=== PATIENT | female | born 1950 ===

== ENCOUNTER 2018-08-26 18:22 | Emergency (ER) | payer OTHER, MEDICARE ==
[2018-08-26 18:25] VITALS: RESP 18; TEMP 97.7; O2SAT 98
[2018-08-26] MEDS ORDERED: Lidocaine 1% Inj (20ml) IJ STA (19:47)
[2018-08-26] MEDS ORDERED: Tetanus/Diphtheria Toxoids 0.5 ml Syringe IM ONE ×2 (19:49→19:59)
[2018-08-26] MEDS ORDERED: Povidone Iodine Topical 10% Sol ONE (19:53)
[2018-08-26] MEDS ORDERED: Lidocaine Hydrochloride 1% 10 ML ONE (19:53)
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
--- NOTE | 2018-08-26 21:29 | ED PDOC ---
- ECG O2 Sat by Pulse Oximetry: 98 - Progress ED Course And Treament: Seen by podiatry in ED. CT of lower extremity requested. Laceration repair by podiatry resident. ct NOTES NONDISPLACED FX; POSSIBLE LISFRANC. PATIENT PLACED IN POSTERIOR SPLINT AND GIVEN CRUTCH INSTRUCTIONS. PATIENT TO F/U WITH PODIATRY CLINIC ON MONDAY Medical Decision Making Medical Decision Makin CT Foot COMMENTS: There is a minimally displaced chip fracture of the lower and fibula. Mildly displaced small chip fractures are seen involving the anterior aspect of the cuboid and bases of the first and second metatarsals Diffuse subcutaneous edema changes are seen in the lateral aspect of the ankle and lateral and dorsal aspect of the foot. There is evidence of a well-defined lucent lesion measuring 1.8 x 1.6 cm in the calcaneum, showing fat attenuation, likely to suggest a lipoma. No soft tissue masses or fluid collections are present. There is no evidence of arthritis. Joint spaces are preserved. IMPRESSION: 1.A minimally displaced chip fracture of the lower and fibula. 2.Mildly displaced small chip fractures involving the anterior aspect of the cuboid and bases of the first and second metatarsals 3.Diffuse subcutaneous edema changes in the lateral aspect of the ankle and lateral and dorsal aspect of the foot. 4.A well-defined lipoma lesion in the calcaneum. Disposition - Clinical Impression Clinical Impression: Foot trauma, Foot fracture, Laceration of foot - POA Present On Arrival: None - Disposition Referrals: Podiatry Clinic [Outside] Disposition: Routine/Home Disposition Time: 23:37 Condition: STABLE Additional Instructions: SARAH DEXTER ROSY PARA HARDIK PARA [facility] Prescriptions: Cephalexin [Keflex] 500 mg PO QID #28 capsule Ibuprofen [Motrin] 600 mg PO Q8 PRN #21 tab PRN Reason: Pain, Moderate (4-7) oxyCODONE/Acetaminophen [Percocet 5/325 mg Tab] 1 ea PO Q6 PRN #10 tab PRN Reason: Pain, Severe (8-10) Instructions: Foot Fracture (DC), Laceration Repair With Stitches (DC) Forms: [facility] ED School/Work Excuse Print Language: KHMER
--- NOTE | 2018-08-26 21:53 | CP.PCM.CON ---
History of Present Illness - History of Present Illness History of Present Illness: Podiatry consult note for attending Dr. Weiner, 75 years old female with PMHx of Anemia, Anxiety, Arthritis, Back Problems, Cardiac Arrhythmia, COPD, Depression, Diverticulitis, PE and DVT (Right leg S/P IVC filter), Fractures (left hip surgery September/2017), HTN, HLD, Kidney Stones, Osteoporosis, Pneumonia, RA, Chronic Pain, Cataract was Seen and evaluated in the ED for pain, swelling and ecchymosis in her left foot, worsening over the last 3 days. Patient was seen in the ED on 08/22/18 and noted to have 3rd and 4th phalangeal fractures. Patient was discharged home with Acosta compression, wear bear as tolerated. Patient and spouse state that yesterday patient started having fever and chills. Patient states that the swelling and ecchymosis became worse despite applying ice to the left foot. Patient reports the pain comes and goes. Patient states that she is on Eliquis anticoagulant. Patient states that she feels some tingling and numbness in her left foot and her left leg. Patient states that she also has chronic back pain. She denies any other pedal complaint at this time. She denies any recent fever/nausea/vomiting/cough/chills/shortness of breathing or loss of consciousness. PMH: Anemia, Anxiety, Arthritis, Back Problems, Cardia Arrhythmia, COPD, Depression, Diverticulitis, PE and DVT (Right leg S/P IVC filter), Fractures (left hip surgery september/2017), HTN, HLD, Kidney Stones, Osteoporosis, Pneumonia, RA, Chronic Pain, Cataract. PSH:Left THR, IVC, back stimulator. Allergies: NKDA. Social Hx: Former smoker; Occasional Alcohol; no illegal drug use; use medical marijuana oil. Review of Systems - Review of Systems All systems: reviewed and no additional remarkable complaints except Review of Systems: As per HPI Past Patient History - Past Social History Smoking Status: Never Smoked - CARDIAC Hx Hypertension: Yes - PSYCHIATRIC Hx Substance Use: No - ANESTHESIA Hx Anesthesia: No Meds Allergies/Adverse Reactions: Allergies Allergy/AdvReac Type Severity Reaction Status Date / Time No Known Allergies Allergy Verified 08/26/18 19:47 Physical Exam - Constitutional Appears: Well, Non-toxic, No Acute Distress - Head Exam Head Exam: ATRAUMATIC, NORMOCEPHALIC - Extremities Exam Additional comments: Left lower extremity focused exam: VASC: DP pulse palpable 2/4, PT pulse palpable 1/4; cap refill <3 seconds to all digits; temp gradient warm to cool from proximal to distal, Moderate non-pitting edema noted to the left forefoot. Ecchymosis noted to the left forefoot at 2-5 toes up to the met shafts, with possible underlying hematoma. Superficial varicosities noted to the lower leg and ankle NEURO: Gross and protective sensations are intact. DERM: moderate non-pitting edema noted to the left forefoot. Ecchymosis noted to the left forefoot at 2-5 toes up to the met. shafts with surrounding cellulitis, No open lesions MSK: Pain on palpating the left 3rd and 4th toes. Pain with ROM of the left 3rd and 4th toes. Muscle power 4/5 to all groups. No pain produced with left hallux dorsiflexion. - Neurological Exam Neurological exam: Alert, Oriented x3 - Psychiatric Exam Psychiatric exam: Normal Affect, Normal Mood Results - Vital Signs Recent Vital Signs: Last Vital Signs Temp 97.7 F 08/26/18 18:25 Pulse 86 08/26/18 18:25 Resp 18 08/26/18 18:25 BP 178/76 H 08/26/18 18:25 Pulse Ox 98 08/26/18 21:29 Assessment & Plan - Assessment and Plan (Free Text) Assessment: 75 years old female with PMH of Anemia, Anxiety, Arthritis, Back Problems, Cardiac Arrhythmia, COPD, Depression, Diverticulitis, PE and DVT (Right leg S/P IVC filter), Fractures (left hip surgery September/2017), HTN, HLD, Kidney Stones, Osteoporosis, Pneumonia, RA, Chronic Pain, Cataract seen and evaluated in the ED for left 3rd and 4th toes fracture, with surrounding erythema, admitted for fever and chills. Plan: Patient seen and evaluated at the bedside in the ED. Plan discussed with Dr. Weiner Charts and vitals reviewed: febrile, absent leukocytosis X-ray left foot (08/22): Acute non displaced fracture noted in the midshaft of the left 3rd proximal phalanx and another acute non displaced fracture noted in the distal aspect of the proximal phalanx of the 4th toe With sever soft tissue swelling of the forefoot X-rays (08/26): moderate soft tissue swelling, no change in fractures No dressing applied at this time Patient instructed to apply ice, Rest and elevate left lower extremity. Patient instructed to no weight bear at this time Podiatry will continue to follow patient while in house - Date & Time Date: 08/26/18 Time: 22:01
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
[2018-08-26] MEDS ORDERED: Oxycodone/Acetaminophen 5/325 mg Tab PO STA (23:55)
[2018-08-27 00:02] VITALS: BP 142/76; PULSE 71
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
== END 2018-08-27 00:14 | disposition home or self-care (01) ==
LOC: H.ER 18:22 → MERGE 18:22 → H.ER 08-27 00:14
DX: S92.322A Displaced fracture of second metatarsal bone, left foot, initial encounter for closed fracture (principal); W23.0XXA Caught, crushed, jammed, or pinched between moving objects, initial encounter; Z87.891 Personal history of nicotine dependence; Z87.442 Personal history of urinary calculi; Z86.718 Personal history of other venous thrombosis and embolism; Z79.01 Long term (current) use of anticoagulants; S91.319A Laceration without foreign body, unspecified foot, initial encounter; M19.90 Unspecified osteoarthritis, unspecified site; I10 Essential (primary) hypertension; Z23 Encounter for immunization
CPT/HCPCS: 12001; 73630; 73700; 90471; 90714; 96372; 99285; J1885

== ENCOUNTER 2018-08-28 11:06 | Inpatient (IN) | payer MEDICARE, OTHER ==
--- NOTE | 2018-08-28 11:54 | ED PDOC ---
Lower Extremity Pain/Injury Time Seen by Provider: 08/28/18 11:19 Chief Complaint (Provider): Right foot pain History Per: Patient History/Exam Limitations: no limitations Onset/Duration Of Symptoms: Days Current Symptoms Are (Timing): Still Present Additional Complaint(s): 67 year old female presents to the ED for an evaluation of her right foot. Patient is status post wound repair on her right lower extremity by a hairmasters manager. Currently, patient has pain. Otherwise, she denies fever or any discharge. Past Medical History Reviewed: Historical Data, Nursing Documentation, Vital Signs Vital Signs: Last Vital Signs Temp 97.4 F L 08/28/18 11:12 Pulse 60 08/28/18 11:12 Resp 18 08/28/18 11:12 BP 114/65 08/28/18 11:12 Pulse Ox 100 08/28/18 11:12 - Medical History PMH: HTN, Hypercholesterolemia - Family History Family History: States: Unknown Family Hx - Immunization History Hx Tetanus Toxoid Vaccination: No Hx Influenza Vaccination: No Hx Pneumococcal Vaccination: No - Home Medications Home Medications: Ambulatory Orders Medication Instructions Recorded No Known Home Med 11/10/13 Cephalexin [Keflex] 500 mg PO QID #28 capsule 08/26/18 Ibuprofen [Motrin] 600 mg PO Q8 PRN #21 tab 08/26/18 oxyCODONE/Acetaminophen [Percocet 1 ea PO Q6 PRN #10 tab 08/26/18 5/325 mg Tab] - Allergies Allergies/Adverse Reactions: Allergies Allergy/AdvReac Type Severity Reaction Status Date / Time No Known Allergies Allergy Verified 08/27/18 08:23 Review of Systems ROS Statement: Except As Marked, All Systems Reviewed And Found Negative Constitutional: Negative for: Fever Musculoskeletal: Positive for: Foot Pain (right ) Skin: Negative for: Other (discharge from wound ) Physical Exam - Reviewed Nursing Documentation Reviewed: Yes Vital Signs Reviewed: Yes - Physical Exam Appears: Positive for: Well, Non-toxic, No Acute Distress Head Exam: Positive for: ATRAUMATIC, NORMAL INSPECTION, NORMOCEPHALIC Skin: Positive for: Normal Color, Warm, Dry Extremity: Positive for: Swelling (mild on the dorsum of right foot), Other (suture intact, no drainage ) Neurological/Psych: Positive for: Awake, Alert, Normal Tone, Oriented (x3) - ECG O2 Sat by Pulse Oximetry: 100 (RA) Pulse Ox Interpretation: Normal Medical Decision Making Medical Decision Making: ----- Scribe Attestation: Documented by Mk Gallardo, acting as a scribe Ad Cesar MD Provider Scribe Attestation: All medical record entries made by the Scribe were at my direction and personally dictated by me. I have reviewed the chart and agree that the record accurately reflects my personal performance of the history, physical exam, medical decision making, and the department course for this patient. I have also personally directed, reviewed, and agree with the discharge instructions and disposition. Disposition - Clinical Impression Clinical Impression: Foot fracture - Patient ED Disposition Is Patient to be Admitted: Yes - Disposition Disposition Time: 14:14 Condition: FAIR - Pt Status Changed To: Hospital Disposition Of: Inpatient - Admit Certification Admit to Inpatient:: After my assessment, the patient will require hospitalization for at least two midnights. This is because of the severity of symptoms shown, intensity of services needed, and/or the medical risk in this patient being treated as an outpatient. - POA Present On Arrival: None
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
--- NOTE | 2018-08-28 14:28 | RAD ---
HISTORY: HTN COMPARISON: None available TECHNIQUE: Chest PA and lateral FINDINGS: LUNGS: No focal consolidation. Please note that chest x-ray has limited sensitivity for the detection of pulmonary masses. PLEURA: Pleural thickening versus tiny effusion at the right costophrenic angle.. No definite pneumothorax . CARDIOVASCULAR: Heart size appears top normal. No atherosclerotic calcification present. OSSEOUS STRUCTURES: Osseous demineralization. Degenerative changes. VISUALIZED UPPER ABDOMEN: Unremarkable. OTHER FINDINGS: None. IMPRESSION: Pleural thickening versus tiny effusion at the right costophrenic angle.
[2018-08-28 15:21] LABS: INR 1.1; PROTHROMBIN TIME 12.7 Seconds (9.8-13.1)
[2018-08-28 15:35] LABS: ALB/GLOB RATIO 1.3 (1.0-2.1); ALBUMIN 4.4 g/dL (3.5-5.0); ALT/SGPT 32 U/L (9-52); AST/SGOT 36 U/L (14-36); BLOOD UREA NITROGEN 16 mg/dl (7-17); CALCIUM 10.1 mg/dL (8.4-10.2); GFR NON-AFRICAN AMERICAN > 60
[2018-08-28 15:38] LABS: BASO % 0.2 % (0.0-2.0); EOS % 0.5 % (0.0-4.0); HEMOGLOBIN 11.8 g/dL (12.0-16.0); LYMPH # 1.2 K/uL (1.0-4.3); LYMPH % 13.6 % (20.0-40.0); MEAN CELL VOLUME 87.8 fl (81.0-99.0); MEAN CORPUSCULAR HEMOGLOBIN 28.9 pg (27.0-31.0); MEAN PLATELET VOLUME 9.8 fl (7.2-11.7); MONO # 0.4 K/uL (0.0-0.8); MONO % 4.5 % (0.0-10.0); NEUT # 7.2 K/uL (1.8-7.0); NEUT % 81.2 % (50.0-75.0); RBC 4.07 Mil/uL (3.80-5.20); WHITE BLOOD COUNT 8.9 K/uL (4.8-10.8)
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
[2018-08-28] MEDS: Oxycodone/Acetaminophen 5/325 mg Tab PO PRN (22:29)
[2018-08-28] MEDS: Piperacillin/Tazobact 3.375 GM in Sodium Chloride 0.9% 100 ML IVPB SCH (22:38)
[2018-08-29] MEDS: Piperacillin/Tazobact 3.375 GM in Sodium Chloride 0.9% 100 ML IVPB SCH ×4 (06:20→21:26)
[2018-08-29 07:05] LABS: HEMOGLOBIN 11.9 g/dL (12.0-16.0); MEAN CORPUSCULAR HEMOGLOBIN 29.4 pg (27.0-31.0); MEAN CORPUSCULAR HGB CONC 33.4 g/dL (33.0-37.0); RBC 4.06 Mil/uL (3.80-5.20); WHITE BLOOD COUNT 7.8 K/uL (4.8-10.8)
[2018-08-29 07:28] LABS: ALB/GLOB RATIO 1.2 (1.0-2.1); ALBUMIN 4.3 g/dL (3.5-5.0); ALT/SGPT 24 U/L (9-52); AST/SGOT 33 U/L (14-36); BLOOD UREA NITROGEN 18 mg/dl (7-17); CALCIUM 9.8 mg/dL (8.4-10.2); GFR NON-AFRICAN AMERICAN 55; HDL CHOLESTEROL 67 MG/DL (30-70)
[2018-08-29 07:30] LABS: LDL CHOLESTEROL 91 mg/dL (0-129)
--- NOTE | 2018-08-29 09:03 | CARD ---
APPROVED REPORT Date of service: 08/28/2018 EKG Measurement Heart [id number] <Conclusion> Sinus bradycardia ST elevation, probably due to early repolarization Borderline ECG
[2018-08-29 10:35] LABS: SQUAMOUS EPITHIAL 3 /hpf (0-5); URINE BILIRUBIN NEGATIVE (NEGATIVE); URINE BLOOD NEGATIVE (NEGATIVE); URINE CLARITY CLEAR (Clear); URINE COLOR YELLOW (YELLOW); URINE GLUCOSE (UA) NEG (NEGATIVE); URINE LEUKOCYTE ESTERASE NEG Leu/uL (Negative); URINE PROTEIN NEGATIVE (NEGATIVE); URINE UROBILINOGEN 0.2-1.0 mg/dL (0.2-1.0)
[2018-08-29 13:48] VITALS: BMI 25.6
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
--- NOTE | 2018-08-29 17:46 | CARD ---
APPROVED REPORT Date of service: 08/29/2018 EXAM: Two-dimensional and M-mode echocardiogram with Doppler and color Doppler. Other Information Quality : AverageRhythm : NSR INDICATION Hypertension/HCVD Pre-Op 2D DIMENSIONS IVSd1.07 (0.7-1.1cm)LVDd4.14 (3.9-5.9cm) LVOT Diameter2.00 (1.8-2.4cm)PWd0.90 (0.7-1.1cm) IVSs1.03 (0.8-1.2cm)LVDs2.81 (2.5-4.0cm) FS (%) 32.2 %PWs1.20 (0.8-1.2cm) M-Mode DIMENSIONS Left Atrium (MM)3.86 (2.5-4.0cm)IVSd1.03 (0.7-1.1cm) Aortic Root2.52 (2.2-3.7cm)LVDd5.02 (4.0-5.6cm) Aortic Cusp Exc.1.83 (1.5-2.0cm)PWd0.75 (0.7-1.1cm) IVSs1.54 cmFS (%) 54 % LVDs2.32 (2.0-3.8cm)PWs1.36 cm Aortic Valve AoV Peak Dvcgiisy740.1cm/sAoV VTI29.7cmAO Peak GR.12mmHg LVOT Peak Bfcwzdop825.4cm/sLVOT VTI21.42cmAO Mean GR.6mmHg JONATHAN (VMAX)1.18rk0DSQ (VTI)1.26vj0UC P 1/2 Ffic286la Mitral Valve MV E Xjnstydn75.1cm/sMV DECEL [id number] A Qlropwwy27.9cm/s MV VLU38sbP/A ratio0.8MVA (PHT)3.39cm2 TDI Lateral E' Peak V11.24cm/sMedial E' Peak V5.62cm/sE/Lateral E'6.4 E/Medial E'12.8 LEFT VENTRICLE The left ventricle is normal size. There is normal left ventricular wall thickness. The left ventricular systolic function is normal. The estimated ejection fraction is 55-60 % No regional wall motion abnormalities noted.. Transmitral Doppler flow pattern is Grade I-abnormal relaxation pattern. No left ventricle thrombus noted on this study. There is no ventricular septal defect visualized. There is no left ventricular aneurysm. There is no mass noted in the left ventricle. RIGHT VENTRICLE The right ventricle is normal size. There is normal right ventricular wall thickness. The right ventricular systolic function is normal. ATRIA The left atrium size is normal. The right atrium size is normal. The interatrial septum is intact with no evidence for an atrial septal defect. AORTIC VALVE The aortic valve is normal in structure. Mild aortic regurgitation is present. There is no aortic valvular stenosis. There is no aortic valvular vegetation. MITRAL VALVE The mitral valve is normal in structure. There is no evidence of mitral valve prolapse. There is no mitral valve stenosis. There is no mitral valve regurgitation noted. TRICUSPID VALVE The tricuspid valve is normal in structure. There is trace tricuspid valve regurgitation noted. RVSP is calculated at 20 mm Hg. There is no tricuspid valve prolapse or vegetation. There is no tricuspid valve stenosis. PULMONIC VALVE The pulmonary valve is normal in structure. There is no pulmonic valvular regurgitation. There is no pulmonic valvular stenosis. GREAT VESSELS The aortic root is normal in size. The ascending aorta is normal in size. The pulmonary artery is normal. The IVC is normal in size and collapses >50% with inspiration. PERICARDIAL EFFUSION There is no pericardial effusion. There is no pleural effusion. <Conclusion> The estimated ejection fraction is 55-60 % Transmitral Doppler flow pattern is Grade I-abnormal relaxation pattern. The left atrium size is normal. Mild aortic regurgitation is present. There is trace tricuspid valve regurgitation noted. RVSP is calculated at 20 mm Hg. The IVC is normal in size and collapses >50% with inspiration.
[2018-08-29] MEDS: Enoxaparin 40 mg Syringe SC SCH (18:09)
[2018-08-29] MEDS: Oxycodone/Acetaminophen 5/325 mg Tab PO PRN (18:43)
--- NOTE | 2018-08-29 18:45 | MRI ---
MRI right foot History: Fracture deformity. Trauma. Comparison: CT scan dated 08/26/2018 Technique: Multi-echo multiplanar sequences were performed through the right forefoot without the use of intravenous contrast. Findings: Limited study given extensive motion artifact. Prominent heterogeneous collection measuring 4.6 x 1.6 x 0.9 centimeters seen within the volar soft tissues at the level of the 2nd and 3rd metatarsal bones demonstrating decreased T1 and T2 signal. On the recent CT scan, this was thought to possibly represent hemorrhage/hemorrhagic collection. Given the blooming artifact, a gas forming component cannot be excluded. Given the recent trauma this may represent a puncture wound with hemorrhagic collection. Additional etiologies not excluded. Necrotizing fasciitis has a similar imaging appearance. Clinical correlation. Reticulation and edema within the circumferential subcutaneous soft tissues best suggestive for prominent diffuse soft tissue swelling most prominent within the dorsal aspect of the foot. Again identified is cortical irregularity concerning for a fracture deformity at the medial volar base of the 2nd metatarsal bone with associated reactive edema extending into the 2nd metatarsal shaft. There is adjacent fraying and increased signal seen within the intraosseous component of the Lisfranc ligament as demonstrated on series 4 images 10 through 12 as well as series 6, images 24 through 27 concerning for prominent partial tearing and or high grade sprain of the Lisfranc ligament. The fracture site/bone marrow edema appears to be at/near the insertion of the Lisfranc ligament. Clinical correlation. Also again identified is reactive bone marrow edema with some cortical irregularity at the lateral base of the 2nd metatarsal bone suggestive for fracture deformity. Again identified is a fracture deformity with reactive bone marrow edema seen at the lateral base of the 1st metatarsal bone. Moderate hallux valgus deformity. Persistent signal abnormality with decreased T1 and T2 signal seen within the 1st medullary shaft suggestive for possible bone island versus osteonecrosis/AVN versus versus additional etiology. Clinical correlation. Prominent patchy reactive bone marrow edema seen within the 5th metatarsal bone with heterogeneous T1 signal. This may represent prominent bone bruising versus subchondral osseous injury/subchondral fracturing. In addition, at the lateral head of the 5th metatarsal bone there is some questionable curvilinear decreased T1 signal as seen on series 3, image 19 which may represent a small nondisplaced fracture deformity. Clinical correlation. Nonspecific reactive bone marrow edema seen within the 3rd and 4th metatarsal shafts which may represent the sequelae of posttraumatic change and or bone bruising and or additional etiology. Clinical correlation. Failure of fat suppression at the level of the phalanges of the 2nd through 5th digits on the sagittal and axial images, limit evaluation at those levels. Again identified is a fracture deformity seen at the distal pole of the cuboid bone near its articulation with the 4th metatarsal bone with decreased T1 signal and increased STIR signal. Prominent focal signal abnormality seen at the distal pole of the calcaneus with curvilinear decreased T1 signal and increased STIR signal measuring 1.2 x 1.0 centimeters. This is of uncertain clinical etiology. This may represent a fracture deformity versus prominent bone bruising versus underlying osseous lesion versus stress injury versus additional etiology. Clinical correlation. This approximates the articulation of the calcaneocuboid joint space. Again identified is a curvilinear fracture deformity of the distal fibula. Partially imaged ankle demonstrates some questionable posterior subluxation of the fibula in relationship to the tibia which may represent a syndesmotic injury. Correlation with plain ankle x-rays and or ankle MRI may be helpful for further evaluation if clinically indicated. Impression: Limited study given extensive motion artifact. 1. Prominent heterogeneous collection measuring 4.6 x 1.6 x 0.9 centimeters seen within the volar soft tissues at the level of the 2nd and 3rd metatarsal bones demonstrating decreased T1 and T2 signal. On the recent CT scan, this was thought to possibly represent hemorrhage/hemorrhagic collection. Given the blooming artifact, a gas forming component cannot be excluded. Given the recent trauma this may represent a puncture wound with hemorrhagic collection. Additional etiologies not excluded. Necrotizing fasciitis has a similar imaging appearance. Clinical correlation. 2. Again identified is cortical irregularity concerning for a fracture deformity at the medial volar base of the 2nd metatarsal bone with associated reactive edema extending into the 2nd metatarsal shaft. There is adjacent fraying and increased signal seen within the intraosseous component of the Lisfranc ligament as demonstrated on series 4 images 10 through 12 as well as series 6, images 24 through 27 concerning for prominent partial tearing and or high grade sprain of the Lisfranc ligament. The fracture site/bone marrow edema appears to be at/near the insertion of the Lisfranc ligament. Clinical correlation. 3. Also again identified is reactive bone marrow edema with some cortical irregularity at the lateral base of the 2nd metatarsal bone suggestive for fracture deformity. 4. Again identified is a fracture deformity with reactive bone marrow edema seen at the lateral base of the 1st metatarsal bone. 5. Moderate hallux valgus deformity. Persistent signal abnormality with decreased T1 and T2 signal seen within the 1st medullary shaft suggestive for possible bone island versus osteonecrosis/AVN versus versus additional etiology. Clinical correlation. 6. Prominent patchy reactive bone marrow edema seen within the 5th metatarsal bone with heterogeneous T1 signal. This may represent prominent bone bruising versus subchondral osseous injury/subchondral fracturing. In addition, at the lateral head of the 5th metatarsal bone there is some questionable curvilinear decreased T1 signal as seen on series 3, image 19 which may represent a small nondisplaced fracture deformity. Clinical correlation. 7. Nonspecific reactive bone marrow edema seen within the 3rd and 4th metatarsal shafts which may represent the sequelae of posttraumatic change and or bone bruising and or additional etiology. Clinical correlation. 8. Failure of fat suppression at the level of the phalanges of the 2nd through 5th digits on the sagittal and axial images, limit evaluation at those levels. 9. Again identified is a fracture deformity seen at the distal pole of the cuboid bone near its articulation with the 4th metatarsal bone with decreased T1 signal and increased STIR signal. 10. Prominent focal signal abnormality seen at the distal pole of the calcaneus with curvilinear decreased T1 signal and increased STIR signal measuring 1.2 x 1.0 centimeters. This is of uncertain clinical etiology. This may represent a fracture deformity versus prominent bone bruising versus underlying osseous lesion versus stress injury versus additional etiology. Clinical correlation. This approximates the articulation of the calcaneocuboid joint space. 11. Again identified is a curvilinear fracture deformity of the distal fibula. 12. Partially imaged ankle demonstrates some questionable posterior subluxation of the fibula in relationship to the tibia which may represent a syndesmotic injury. Correlation with plain ankle x-rays and or ankle MRI may be helpful for further evaluation if clinically indicated.
--- NOTE | 2018-08-29 21:48 | CP.PCM.PN ---
Subjective - Date & Time of Evaluation Date of Evaluation: 08/29/18 Time of Evaluation: 10:00 - Subjective Subjective: F/U R foot pain, s/p Fx. no pain R foot Objective - Vital Signs/Intake and Output Vital Signs (last 24 hours): Temp Pulse Resp BP Pulse Ox 98 F 65 18 103/62 99 08/29/18 17:08 08/29/18 17:08 08/29/18 17:08 08/29/18 17:08 08/29/18 17:08 - Medications Medications: Current Medications Calcium Carbonate (Oscal) 500 mg PO BID [facility] Last Admin: 08/29/18 18:10 Dose: 500 mg Enoxaparin Sodium (Lovenox) 40 mg SC DAILY [facility]; Protocol Last Admin: 08/29/18 18:09 Dose: 40 mg Ergocalciferol (Drisdol 50,000 Intl Units Cap) 1 cap PO SAT [facility] Gabapentin (Neurontin) 200 mg PO HS [facility] Last Admin: 08/29/18 21:30 Dose: 200 mg Hydrochlorothiazide (Microzide) 12.5 mg PO DAILY [facility] Last Admin: 08/29/18 10:26 Dose: 12.5 mg Piperacillin Sod/Tazobactam (Sod 3.375 gm/ Sodium Chloride) 100 mls @ 100 mls/hr IVPB Q6 [facility]; Protocol Last Admin: 08/29/18 21:26 Dose: 100 mls/hr Vancomycin HCl 1 gm/ Sodium (Chloride) 250 mls @ 166.667 mls/hr IVPB Q12@0000,1200 [facility]; Protocol Last Admin: 08/29/18 13:17 Dose: 166.667 mls/hr Losartan Potassium (Cozaar) 100 mg PO DAILY [facility] Last Admin: 08/29/18 10:25 Dose: 100 mg Oxycodone/Acetaminophen (Percocet 5/325 Mg Tab) 1 tab PO Q6 PRN PRN Reason: Pain, severe (8-10) Stop: 08/31/18 18:08 Last Admin: 08/29/18 18:43 Dose: 1 tab - Labs Labs: 08/29/18 05:55 08/29/18 05:55 PT 12.7 Seconds (9.8-13.1) 08/28/18 15:13 INR 1.1 08/28/18 15:13 APTT 33.7 Seconds (25.6-37.1) 08/29/18 05:55 - Constitutional Appears: No Acute Distress - Head Exam Head Exam: NORMAL INSPECTION - Eye Exam Eye Exam: PERRL - ENT Exam ENT Exam: Normal Exam - Neck Exam Neck Exam: Normal Inspection - Respiratory Exam Respiratory Exam: NORMAL BREATHING PATTERN - GI/Abdominal Exam GI & Abdominal Exam: Soft, Normal Bowel Sounds - Extremities Exam Extremities Exam: Tenderness (R foot) Additional comments: moves toes R foot, R foot- splint, KULDEEP wrapp - Back Exam Back Exam: NORMAL INSPECTION - Neurological Exam Neurological Exam: Alert, Awake, Oriented x3 - Psychiatric Exam Psychiatric exam: Normal Affect, Normal Mood - Skin Skin Exam: Warm Assessment and Plan (1) Right foot pain Status: Acute (2) Lisfranc fracture Status: Acute (3) Foot trauma Status: Acute (4) HTN (hypertension) Status: Chronic - Assessment and Plan (Free Text) Plan: ECHO LVEF 55-60%, Cardiology for clearance, continue Zosyn, Vanco, Percocet and rest of Tx
[2018-08-30] MEDS: Piperacillin/Tazobact 3.375 GM in Sodium Chloride 0.9% 100 ML IVPB SCH ×5 (04:25→21:06)
--- NOTE | 2018-08-30 07:30 | CP.PCM.PN ---
Subjective - Date & Time of Evaluation Date of Evaluation: 08/30/18 Time of Evaluation: 07:27 - Subjective Subjective: Caridad Pace, PGY-1, Cardiology Consult Note for Dr. Rojas Patient seen and evaluated at bedside. Patient had no acute overnight events. Patient reports mild right foot pain but denies any other symptoms at this time. Objective - Vital Signs/Intake and Output Vital Signs (last 24 hours): Temp Pulse Resp BP Pulse Ox 97.6 F 63 18 96/52 L 97 08/29/18 23:59 08/29/18 23:59 08/29/18 23:59 08/29/18 23:59 08/29/18 23:59 - Medications Medications: Current Medications Calcium Carbonate (Oscal) 500 mg PO BID [facility] Last Admin: 08/29/18 18:10 Dose: 500 mg Enoxaparin Sodium (Lovenox) 40 mg SC DAILY [facility]; Protocol Last Admin: 08/29/18 18:09 Dose: 40 mg Ergocalciferol (Drisdol 50,000 Intl Units Cap) 1 cap PO SAT [facility] Gabapentin (Neurontin) 200 mg PO HS [facility] Last Admin: 08/29/18 21:30 Dose: 200 mg Hydrochlorothiazide (Microzide) 12.5 mg PO DAILY [facility] Last Admin: 08/29/18 10:26 Dose: 12.5 mg Piperacillin Sod/Tazobactam (Sod 3.375 gm/ Sodium Chloride) 100 mls @ 100 mls/hr IVPB Q6 [facility]; Protocol Last Admin: 08/30/18 04:25 Dose: 100 mls/hr Vancomycin HCl 1 gm/ Sodium (Chloride) 250 mls @ 166.667 mls/hr IVPB Q12@0000,1200 [facility]; Protocol Last Admin: 08/30/18 00:03 Dose: 166.667 mls/hr Losartan Potassium (Cozaar) 100 mg PO DAILY [facility] Last Admin: 08/29/18 10:25 Dose: 100 mg Oxycodone/Acetaminophen (Percocet 5/325 Mg Tab) 1 tab PO Q6 PRN PRN Reason: Pain, severe (8-10) Stop: 08/31/18 18:08 Last Admin: 08/29/18 18:43 Dose: 1 tab - Labs Labs: 08/29/18 05:55 08/29/18 05:55 PT 12.7 Seconds (9.8-13.1) 08/28/18 15:13 INR 1.1 08/28/18 15:13 APTT 33.7 Seconds (25.6-37.1) 08/29/18 05:55 - Constitutional Appears: Well, Non-toxic, No Acute Distress - Head Exam Head Exam: ATRAUMATIC, NORMAL INSPECTION, NORMOCEPHALIC - Eye Exam Eye Exam: EOMI, PERRL - ENT Exam ENT Exam: Mucous Membranes Moist - Neck Exam Neck Exam: Full ROM - Respiratory Exam Respiratory Exam: Clear to Ausculation Bilateral, NORMAL BREATHING PATTERN - Cardiovascular Exam Cardiovascular Exam: REGULAR RHYTHM, RRR, +S1, +S2 - GI/Abdominal Exam GI & Abdominal Exam: Soft, Normal Bowel Sounds. absent: Tenderness - Extremities Exam Extremities Exam: Normal Capillary Refill. absent: Pedal Edema Additional comments: 1st and 2nd metatarsal fracture of the right foot - Neurological Exam Neurological Exam: Alert, Awake, CN II-XII Intact, Oriented x3 - Psychiatric Exam Psychiatric exam: Normal Affect, Normal Mood - Skin Skin Exam: Dry, Intact Assessment and Plan - Assessment and Plan (Free Text) Assessment: Lisfranc Fracture Hypertension Hyperlipidemia Prior DVT and PE Anemia Plan: Lisfranc Fracture Hypertension Hyperlipidemia Prior DVT and PE Anemia Lower Extremity CT showed LIsfranc fracture with cortical irregularities and comminute fractures at 2nd metatarsal at insertion of lisfranc ligament. Also showed comminution fracture at base of 1st metatarsal. Foot MRI 08/29: heterogenous collection measuring 4.6x1.6x0.9 cm seen in volar tissues at the level of the 2nd and 3rd metatarsal bones. On recent CT, this was thought to possible represent hemorrhage/hemorrhagic collection. Cortical irregularity concerning for fracture deformity of 2nd metatarsal. There is adjacent fraying and increased signal seen within the intraosseous component of the Lisfranc ligament as demonstrated on series 4 images 10 through 12 as well as series 6, images 24 through 27 concerning for prominent partial tearing and or high grade sprain of the Lisfranc ligament. The fracture site/bone marrow edema appears to be at/near the insertion of the Lisfranc ligament. Also again identified is reactive bone marrow edema with some cortical irregularity at the lateral base of the 2nd metatarsal bone suggestive for fracture deformity. Again identified is a fracture deformity with reactive bone marrow edema seen at the lateral base of the 1st metatarsal bone. Prominent patchy reactive bone marrow edema seen within the 5th metatarsal bone with heterogeneous T1 signal. This may represent prominent bone bruising versus subchondral osseous injury/subchondral fracturing. In addition, at the lateral head of the 5th metatarsal bone there is some questionable curvilinear decreased T1 signal as seen on series 3, image 19 which may represent a small nondisplaced fracture deformity. Nonspecific reactive bone marrow edema seen within the 3rd and 4th metatarsal shafts which may represent the sequelae of posttraumatic change and or bone bruising and or additional etiology. CXR: pleural thickening; tiny effusion at right costophrenic angle ECG 08/28: sinus bradycardia; ST elevations due to early repolarization Echocardiogram 08/29: LVEF of 55-60%, grade I abnormal relaxation pattern, mild AR, trace TR Nuclear stress test 08/30: unremarkable TSH: 2.31 T4: 5.37 LDL: 91 HDL: 67 Cholesterol: 200 T Patient can be cleared for surgery tomorrow from cardiology standpoint. Medications: HCTZ 12.5 mg Cozaar 100 mg Vancomycin Piperacillin/Tazobactam
[2018-08-30] MEDS: Enoxaparin 40 mg Syringe SC SCH (08:30)
--- NOTE | 2018-08-30 08:56 | CP.PCM.PN ---
Subjective - Date & Time of Evaluation Date of Evaluation: 08/30/18 Time of Evaluation: 08:56 - Subjective Subjective: Podiatry Progress Note: Dr. Saunders 67 year old female patient seen and evaluated at bedside for R Lisfranc injury. Patient resting comfortably and in NAD. Patient states that she is in very minimal pain today, however she tends to experience her pain at night. She continues to elevate her R lower extremity as instructed. Patient aware of planned surgical intervention tomorrow at 7:45 am. Denies nausea/vomiting/fever/shortness of breath. Objective - Vital Signs/Intake and Output Vital Signs (last 24 hours): Temp Pulse Resp BP Pulse Ox 97.3 F L 60 19 105/69 99 08/30/18 07:55 08/30/18 07:55 08/30/18 07:55 08/30/18 07:55 08/30/18 07:55 - Medications Medications: Current Medications Calcium Carbonate (Oscal) 500 mg PO BID [facility] Last Admin: 08/30/18 08:27 Dose: Not Given Enoxaparin Sodium (Lovenox) 40 mg SC DAILY [facility]; Protocol Last Admin: 08/30/18 08:30 Dose: 40 mg Ergocalciferol (Drisdol 50,000 Intl Units Cap) 1 cap PO SAT [facility] Gabapentin (Neurontin) 200 mg PO HS [facility] Last Admin: 08/29/18 21:30 Dose: 200 mg Hydrochlorothiazide (Microzide) 12.5 mg PO DAILY [facility] Last Admin: 08/30/18 08:27 Dose: Not Given Piperacillin Sod/Tazobactam (Sod 3.375 gm/ Sodium Chloride) 100 mls @ 100 mls/hr IVPB Q6 [facility]; Protocol Last Admin: 08/30/18 04:25 Dose: 100 mls/hr Vancomycin HCl 1 gm/ Sodium (Chloride) 250 mls @ 166.667 mls/hr IVPB Q12@0000,1200 [facility]; Protocol Last Admin: 08/30/18 00:03 Dose: 166.667 mls/hr Losartan Potassium (Cozaar) 100 mg PO DAILY [facility] Last Admin: 08/30/18 08:27 Dose: Not Given Oxycodone/Acetaminophen (Percocet 5/325 Mg Tab) 1 tab PO Q6 PRN PRN Reason: Pain, severe (8-10) Stop: 08/31/18 18:08 Last Admin: 08/29/18 18:43 Dose: 1 tab - Labs Labs: 08/29/18 05:55 08/29/18 05:55 PT 12.7 Seconds (9.8-13.1) 08/28/18 15:13 INR 1.1 08/28/18 15:13 APTT 33.7 Seconds (25.6-37.1) 08/29/18 05:55 - Constitutional Appears: Non-toxic, No Acute Distress - Head Exam Head Exam: ATRAUMATIC, NORMOCEPHALIC - Extremities Exam Additional comments: Posterior splint c/d/i NVS intact Patient able to wiggle toes - Neurological Exam Neurological Exam: Alert, Awake, Oriented x3 - Psychiatric Exam Psychiatric exam: Normal Affect, Normal Mood - Skin Skin Exam: Warm Assessment and Plan - Assessment and Plan (Free Text) Assessment: 67 year old female patient with R Lisfranc injury secondary to trauma. Plan: Patient was seen and evaluated Plan discussed with Dr. Chip Thorntone measurement and verification engineer used Posterior splint left c/d/i at this time Will continue to monitor edema to R lower extremity Discussed with patient importance of RICE protocol to reduce edema NWB to RLE with the use of crutches Plan for surgery Monday at 7:[address] Saunders for Lisfranc ORIF NPO after midnight Please medically optimize patient and provide risk assessment
[2018-08-30] MEDS ORDERED: Aminophylline 25 mg/ml Inj ONE (10:31)
--- NOTE | 2018-08-30 14:23 | CARD ---
APPROVED REPORT Date of service: 08/30/2018 Protocol: LEXISCAN Test Type: LEXISCAN Medications: OSCAL 500MG LOVENOX 40MG DRISDOL 50,000 UNI NEURONTIN 200MG MICROZIDE 12.5MG PIPERACILLIN SOD 100MG VANCOMYCIN HCL 1GM LOSARTAN POTASSIUM 100MG OXYCODONE/ACETAMINOPHEN 325MG Medical History: HTN, HLD, KIDNEY STONES, OSTEOPOROSIS, PNEUMONIA, RA, CHRONIC PAIN, SILENT [place], ANEMIA, ANXIETY, ARTHRITIS, BACK PROBLEMS, CARDIAC ARRYTHMIA, COPD, DEPRESSION, DIVERTICULITIS, PE AND DVT (RIGHT LEG S/P IVC FILTER), FRACTURES (LEFT HIP SURGERY SEPTEMBER/2017). Target HR: 154 bpm Resting ECG: normal Resting Heart Rate: 67 bpm Resting Blood Pressure: 134/65mmHg submaximum (85%): 131 bpm TEST SUMMARY PREINJECTPRE-[id number]. [id number]/65.0. INJECTIONNS FLUSH00:[id number]/69.0. INJECTIONNUC MED00:[id number]. [id number]/64.0. PROCEDURE Pharmacologic stress testing was performed using 0.4mg per 5ml of regadenoson given intravenously over 7-10 seconds. POST EXERCISE Reason for Termination: Fatigue Target HR: No Max HR: 96 bpm 62% of Maximum Predicted HR: 154 bpm Exercise duration: 01:00 min:sec, 0 Stage Exercise capacity: 1.0METs Max Blood Pressure: 136/71mmHg Blood Pressure response to exercise: normal resting BP - appropriate response Heart Rate response to exercise: appropriate Chest Pain: No, none Angina index: 0 Arrhythmia: No, none ST Change: No, none Deviation: 0 mm Clinical Indications Under Appropriate Use Criteria Patient with history of hypertension, hyperlipidemia, DVD for Lexiscan stress test Stress EKG Interpretation No t or t waves changes noticed. RESTING ECG Rhythm: Sinus Conduction: Normal Arrhythmias: None Repolarization: Normal STRESS ECG Rhythm: Sinus Conduction: Normal Arrhythmias: None Repolarization: Normal none ST-Segment changes. EXAM: Myocardial Perfusion REST/STRESSMyocardial Perfusion REST/STRESSMyocardial Perfusion REST/STRESS Imaging Protocol The imaging protocol used to acquire images was Rest Tc-99m/stress Tc-99m 1 dayRest Tc-99m/stress Tc-99m 1 day Rest Spect myocardial perfusion imaging was performed in supine position 40 minutes following the injection of 10 mCi of Tc-99 Myoview. Time of rest injection: 08:30 Time of rest imagin:10 At peak stress, the patient was injected intravenously with 30mCi of Tc-99 tetrofosmin after an infusion time of minutes and seconds. Time of stress injection: 10:45 Time of stress imagin:25 Gated Stress Spect was performed 40 minutes after intravenous Tc-99 Myoview injection. The images were gated to evaluate regional wall motion and calculate ventricular ejection fraction. NUCLEAR IMAGE INTERPRETATION Study quality was excellent. Left Ventricular size was Normal at Rest and Stress. Lung uptake was Normal. Left Ventricular ejection fraction is 91%. The rest and stress images show normal perfusion, normal contraction and thickening. LV Perfusion Normal perfusion woodard LV Perfusion 1 The rest and stress images show normal perfusion. Wall Motion Normal wall motion CONCLUSION 1. Normal nuclear Lexiscan stress test Recommendation Medical therapy
--- NOTE | 2018-08-30 15:42 | CP.PCM.PN ---
Subjective - Date & Time of Evaluation Date of Evaluation: 08/30/18 Time of Evaluation: 12:10 - Subjective Subjective: F/U Fx R foot minimal pain R foot Objective - Vital Signs/Intake and Output Vital Signs (last 24 hours): Temp Pulse Resp BP Pulse Ox 97.3 F L 65 19 125/62 99 08/30/18 07:55 08/30/18 13:57 08/30/18 07:55 08/30/18 13:57 08/30/18 07:55 - Medications Medications: Current Medications Calcium Carbonate (Oscal) 500 mg PO BID [facility] Last Admin: 08/30/18 13:03 Dose: 500 mg Enoxaparin Sodium (Lovenox) 40 mg SC DAILY [facility]; Protocol Last Admin: 08/30/18 08:30 Dose: 40 mg Ergocalciferol (Drisdol 50,000 Intl Units Cap) 1 cap PO SAT [facility] Famotidine (Pepcid) 20 mg PO DAILY [facility] Last Admin: 08/30/18 13:07 Dose: 20 mg Gabapentin (Neurontin) 200 mg PO HS [facility] Last Admin: 08/29/18 21:30 Dose: 200 mg Hydrochlorothiazide (Microzide) 12.5 mg PO DAILY [facility] Last Admin: 08/30/18 13:03 Dose: 12.5 mg Piperacillin Sod/Tazobactam (Sod 3.375 gm/ Sodium Chloride) 100 mls @ 100 mls/hr IVPB Q6 [facility]; Protocol Last Admin: 08/30/18 13:04 Dose: 100 mls/hr Vancomycin HCl 1 gm/ Sodium (Chloride) 250 mls @ 166.667 mls/hr IVPB Q12@0000,1200 [facility]; Protocol Last Admin: 08/30/18 13:04 Dose: 166.667 mls/hr Losartan Potassium (Cozaar) 100 mg PO DAILY [facility] Last Admin: 08/30/18 13:03 Dose: 100 mg Oxycodone/Acetaminophen (Percocet 5/325 Mg Tab) 1 tab PO Q6 PRN PRN Reason: Pain, severe (8-10) Stop: 08/31/18 18:08 Last Admin: 08/29/18 18:43 Dose: 1 tab - Labs Labs: 08/29/18 05:55 08/29/18 05:55 PT 12.7 Seconds (9.8-13.1) 08/28/18 15:13 INR 1.1 08/28/18 15:13 APTT 33.7 Seconds (25.6-37.1) 08/29/18 05:55 - Constitutional Appears: No Acute Distress - Head Exam Head Exam: NORMAL INSPECTION - Eye Exam Eye Exam: PERRL - ENT Exam ENT Exam: Normal Exam - Neck Exam Neck Exam: Normal Inspection - Respiratory Exam Respiratory Exam: NORMAL BREATHING PATTERN - Cardiovascular Exam Cardiovascular Exam: REGULAR RHYTHM - GI/Abdominal Exam GI & Abdominal Exam: Soft, Normal Bowel Sounds - Extremities Exam Extremities Exam: Pedal Edema, Tenderness Additional comments: dressing and splint on R foot, able to wiggle toes. - Back Exam Back Exam: NORMAL INSPECTION - Neurological Exam Neurological Exam: Alert, Oriented x3 - Psychiatric Exam Psychiatric exam: Normal Affect, Normal Mood - Skin Skin Exam: Warm Assessment and Plan (1) Right foot pain Status: Acute (2) Lisfranc fracture Assessment & Plan: R foot Status: Acute (3) Foot trauma Status: Acute (4) HTN (hypertension) Status: Chronic - Assessment and Plan (Free Text) Plan: continue Zosyn, Vanco, Percocet and rest of Tx. Myocardial perfusion Scan neg., Cardiology cleared for Surgery. Patient is medically cleared for Surgery, OR in am
[2018-08-31] MEDS: Piperacillin/Tazobact 3.375 GM in Sodium Chloride 0.9% 100 ML IVPB SCH ×4 (03:52→21:56)
[2018-08-31] MEDS ORDERED: Propofol 10 mg/ml Inj (20 ML) ONE (07:33)
[2018-08-31] MEDS ORDERED: Midazolam 2 MG/2 ML VIAL ONE (07:33)
[2018-08-31] MEDS ORDERED: Lidocaine 2% Jelly (5 ml) TOP ONE (07:34)
[2018-08-31] MEDS ORDERED: Lidocaine 1% 5ml Abboject ONE (07:34)
--- NOTE | 2018-08-31 07:37 | CP.PCM.PN ---
Subjective - Date & Time of Evaluation Date of Evaluation: 08/31/18 Time of Evaluation: 07:37 - Subjective Subjective: Podiatry Progress Note: Dr. Saunders 67 year old female patient seen and evaluated for R Lisfranc injury. Patient is aware that she is going to the OR this morning. Patient states that she has remained NPO since last night. She is aware of the surgical procedure and does not have any questions or concerns at this time Denies nausea/vomiting fever/shortness of breath chest pain. Objective - Vital Signs/Intake and Output Vital Signs (last 24 hours): Temp Pulse Resp BP Pulse Ox 97.6 F 60 18 103/65 97 08/31/18 06:31 08/31/18 06:31 08/31/18 06:31 08/31/18 06:31 08/31/18 06:31 - Medications Medications: Current Medications Calcium Carbonate (Oscal) 500 mg PO BID [facility] Last Admin: 08/30/18 17:19 Dose: 500 mg Enoxaparin Sodium (Lovenox) 40 mg SC DAILY [facility]; Protocol Last Admin: 08/30/18 08:30 Dose: 40 mg Ergocalciferol (Drisdol 50,000 Intl Units Cap) 1 cap PO SAT [facility] Famotidine (Pepcid) 20 mg PO DAILY [facility] Last Admin: 08/30/18 13:07 Dose: 20 mg Gabapentin (Neurontin) 200 mg PO HS [facility] Last Admin: 08/30/18 21:08 Dose: 200 mg Hydrochlorothiazide (Microzide) 12.5 mg PO DAILY [facility] Last Admin: 08/30/18 13:03 Dose: 12.5 mg Piperacillin Sod/Tazobactam (Sod 3.375 gm/ Sodium Chloride) 100 mls @ 100 mls/hr IVPB Q6 [facility]; Protocol Last Admin: 08/31/18 03:52 Dose: 100 mls/hr Vancomycin HCl 1 gm/ Sodium (Chloride) 250 mls @ 166.667 mls/hr IVPB Q12@0000,1200 [facility]; Protocol Last Admin: 08/30/18 23:30 Dose: 166.667 mls/hr Losartan Potassium (Cozaar) 100 mg PO DAILY [facility] Last Admin: 08/30/18 13:03 Dose: 100 mg Oxycodone/Acetaminophen (Percocet 5/325 Mg Tab) 1 tab PO Q6 PRN PRN Reason: Pain, severe (8-10) Stop: 08/31/18 18:08 Last Admin: 08/29/18 18:43 Dose: 1 tab - Labs Labs: 08/29/18 05:55 08/29/18 05:55 PT 12.7 Seconds (9.8-13.1) 08/28/18 15:13 INR 1.1 08/28/18 15:13 APTT 33.7 Seconds (25.6-37.1) 08/29/18 05:55 - Extremities Exam Additional comments: Posterior splint left clean/dry/intact Patient able to wiggle toe NVS intact Assessment and Plan - Assessment and Plan (Free Text) Assessment: 67 year old female patient seen and evaluated for R Lisfranc injury; plan for ORIF Plan: Pt was seen and examined in SDS Pt NPO status was confirmed All pre-op testing and clearance in chart Pt has exhausted all conservative treatment at this time and is opting for surgical intervention Pt was explained procedure and post-operative course All pt's questions were answered to satisfaction No guarantees were made Pt understands all risks, benefits and complications of procedure Pt will follow-up with Dr. Saunders within 1 week of surgery
[2018-08-31] MEDS ORDERED: Bupivacaine 0.25%-Epinephrine 1:200,000 (30 ml) Inj ONE (07:39)
[2018-08-31] MEDS ORDERED: Bupivacaine 0.5% Inj(30mL) ONE (07:44)
[2018-08-31] MEDS ORDERED: Lidocaine 1% Inj (20ml) ONE (07:44)
[2018-08-31] MEDS: Enoxaparin 40 mg Syringe SC SCH (08:04)
[2018-08-31] MEDS ORDERED: Bupivacaine 0.5% 50 ML IJ ONE (08:33)
[2018-08-31] MEDS ORDERED: HYDROmorphone 0.5 mg/0.5 ml ISec IVP PRN (10:03)
--- NOTE | 2018-08-31 10:08 | PCM.SURG1 ---
Surgeon's Initial Post Op Note - Surgeon's Notes Surgeon: Dr.Brian Saunders Grain Roaster: Janice Wallace PGY-2 Type of Anesthesia: General LMA, Local Anesthesia Administered By: Dr. Oswald Pre-Operative Diagnosis: right foot Lisfranc joint dislocation, right foot 2nd metatarsal base fracture Operative Findings: I: 16cc 0.25% Marcaine plain pre-operatively, 10cc 0.25% Marcaine plain postoperatively. M: 3.7 x 38 mm solid [employer] Denise screw, 3.7 x 28 mm [employer] Den[employer] screw, 3-0 Vicryl, 4-0 Vicryl, 4-0 Nylon Post-Operative Diagnosis: same Operation Performed: right foot open reduction with internal fixation of Lisfranc joint and 2nd metatarsal base fracture Specimen/Specimens Removed: none Estimated Blood Loss: EBL {In ML}: 9 Blood Products Given: N/A Drains Used: No Drains Post-Op Condition: Good Date of Surgery/Procedure: 08/31/18 Time of Surgery/Procedure: 08:30
[2018-08-31] MEDS ORDERED: Lactated Ringer's 1,000 ML IV SCH (10:15)
--- NOTE | 2018-08-31 10:52 | RAD ---
Date of service: 08/31/2018 PROCEDURE: Intraoperative Fluoroscopy. HISTORY: RIGHT FOOT FINDINGS: Fluoroscopic assistance was provided. Fluoroscopy time = 69.7 sec. Radiation dose = 1.26 mGy. Please refer to the operative report for additional details.
--- NOTE | 2018-08-31 12:14 | CP.PCM.PN ---
Subjective - Date & Time of Evaluation Date of Evaluation: 08/31/18 Time of Evaluation: 12:12 - Subjective Subjective: Caridad Pace, PGY-1, Cardiology Consult Note for Dr. Rojas Patient seen and evaluated at bedside. Patient had no acute overnight events. Patient reports mild right foot pain but denies any other symptoms at this time. Patient is ready for surgery today. Objective - Vital Signs/Intake and Output Vital Signs (last 24 hours): Temp Pulse Resp BP Pulse Ox 97.6 F 61 19 100/60 100 08/31/18 11:58 08/31/18 11:58 08/31/18 11:58 08/31/18 11:58 08/31/18 11:58 Intake and Output: 08/31/18 08/31/18 06:59 18:59 Intake Total 700 Balance 700 - Medications Medications: Current Medications Calcium Carbonate (Oscal) 500 mg PO BID [facility] Last Admin: 08/31/18 08:04 Dose: Not Given Enoxaparin Sodium (Lovenox) 40 mg SC DAILY [facility]; Protocol Last Admin: 08/31/18 08:04 Dose: Not Given Ergocalciferol (Drisdol 50,000 Intl Units Cap) 1 cap PO SAT [facility] Famotidine (Pepcid) 20 mg PO DAILY [facility] Last Admin: 08/31/18 08:04 Dose: Not Given Gabapentin (Neurontin) 200 mg PO HS [facility] Last Admin: 08/30/18 21:08 Dose: 200 mg Hydrochlorothiazide (Microzide) 12.5 mg PO DAILY [facility] Last Admin: 08/31/18 08:04 Dose: Not Given Piperacillin Sod/Tazobactam (Sod 3.375 gm/ Sodium Chloride) 100 mls @ 100 mls/hr IVPB Q6 [facility]; Protocol Last Admin: 08/31/18 09:00 Dose: 100 mls Vancomycin HCl 1 gm/ Sodium (Chloride) 250 mls @ 166.667 mls/hr IVPB Q12@0000,1200 [facility]; Protocol Last Admin: 08/31/18 11:59 Dose: 166.667 mls/hr Losartan Potassium (Cozaar) 100 mg PO DAILY [facility] Last Admin: 08/31/18 08:04 Dose: Not Given Oxycodone/Acetaminophen (Percocet 5/325 Mg Tab) 1 tab PO Q6 PRN PRN Reason: Pain, severe (8-10) Stop: 08/31/18 18:08 Last Admin: 08/29/18 18:43 Dose: 1 tab - Labs Labs: 08/29/18 05:55 08/29/18 05:55 PT 12.7 Seconds (9.8-13.1) 08/28/18 15:13 INR 1.1 08/28/18 15:13 APTT 33.7 Seconds (25.6-37.1) 08/29/18 05:55 - Constitutional Appears: Well, Non-toxic, No Acute Distress - Head Exam Head Exam: ATRAUMATIC, NORMAL INSPECTION, NORMOCEPHALIC - Eye Exam Eye Exam: EOMI, PERRL - ENT Exam ENT Exam: Mucous Membranes Moist - Neck Exam Neck Exam: Full ROM - Respiratory Exam Respiratory Exam: Clear to Ausculation Bilateral, NORMAL BREATHING PATTERN - Cardiovascular Exam Cardiovascular Exam: REGULAR RHYTHM, RRR, +S1, +S2 - GI/Abdominal Exam GI & Abdominal Exam: Soft, Normal Bowel Sounds. absent: Tenderness - Extremities Exam Extremities Exam: Normal Capillary Refill. absent: Pedal Edema Additional comments: 1st and 2nd metatarsal fracture of the right foot - Neurological Exam Neurological Exam: Alert, Awake, CN II-XII Intact, Oriented x3 - Psychiatric Exam Psychiatric exam: Normal Affect, Normal Mood - Skin Skin Exam: Dry, Intact Assessment and Plan - Assessment and Plan (Free Text) Assessment: Lisfranc Fracture Hypertension Hyperlipidemia Prior DVT and PE Anemia Plan: Lisfranc Fracture Hypertension Hyperlipidemia Prior DVT and PE Anemia Lower Extremity CT showed LIsfranc fracture with cortical irregularities and comminute fractures at 2nd metatarsal at insertion of lisfranc ligament. Also showed comminution fracture at base of 1st metatarsal. Foot MRI 08/29: heterogenous collection measuring 4.6x1.6x0.9 cm seen in volar tissues at the level of the 2nd and 3rd metatarsal bones. On recent CT, this was thought to possible represent hemorrhage/hemorrhagic collection. Cortical irregularity concerning for fracture deformity of 2nd metatarsal. There is adjacent fraying and increased signal seen within the intraosseous component of the Lisfranc ligament as demonstrated on series 4 images 10 through 12 as well as series 6, images 24 through 27 concerning for prominent partial tearing and or high grade sprain of the Lisfranc ligament. The fracture site/bone marrow edema appears to be at/near the insertion of the Lisfranc ligament. Also again identified is reactive bone marrow edema with some cortical irregularity at the lateral base of the 2nd metatarsal bone suggestive for fracture deformity. Again identified is a fracture deformity with reactive bone marrow edema seen at the lateral base of the 1st metatarsal bone. Prominent patchy reactive bone marrow edema seen within the 5th metatarsal bone with heterogeneous T1 signal. This may represent prominent bone bruising versus subchondral osseous injury/ subchondral fracturing. In addition, at the lateral head of the 5th metatarsal bone there is some questionable curvilinear decreased T1 signal as seen on series 3, image 19 which may represent a small nondisplaced fracture deformity. Nonspecific reactive bone marrow edema seen within the 3rd and 4th metatarsal shafts which may represent the sequelae of posttraumatic change and or bone bruising and or additional etiology. CXR: pleural thickening; tiny effusion at right costophrenic angle ECG 08/28: sinus bradycardia; ST elevations due to early repolarization Echocardiogram 08/29: LVEF of 55-60%, grade I abnormal relaxation pattern, mild AR, trace TR Nuclear stress test 08/30: unremarkable TSH: 2.31 T4: 5.37 LDL: 91 HDL: 67 Cholesterol: 200 T Patient for ORIF surgery today. Medications: HCTZ 12.5 mg Cozaar 100 mg Vancomycin Piperacillin/Tazobactam
--- NOTE | 2018-08-31 13:14 | RAD ---
Date of service: 08/31/2018 PROCEDURE: Right Foot Radiographs. HISTORY: Status post surgery ORIF lisfrnac COMPARISON: Comparison made with prior radiographs of the right foot and a prior CT scan of the right foot both dated 08/26/2018. FINDINGS: BONES: ORIF Lisfranc fractures involving the 2nd metatarsal the threaded screws traverse the 1st cuneiform and extending into the base of the 2nd metatarsal and a 2nd screw extends through the 1st cuneiform and may just extend through the 2nd cuneiform... Fractures of the base of the 1st metatarsal and the cuboid less well seen on this exam as compared to high-resolution CT scan.. There is adequate alignment Also again seen is a fracture of the distal JOINTS: Joint spaces appear preserved SOFT TISSUES: Normal. OTHER FINDINGS: None. IMPRESSION: ORIF Lisfranc injury satisfactory alignment with satisfactory alignment as above..
--- NOTE | 2018-08-31 14:19 | CP.PCM.PN ---
Subjective - Date & Time of Evaluation Date of Evaluation: 08/31/18 Time of Evaluation: 13:50 - Subjective Subjective: F/U S/P R ORIF Lisfrank Fx. Minimal pain R foot. Objective - Vital Signs/Intake and Output Vital Signs (last 24 hours): Temp Pulse Resp BP Pulse Ox 97.4 F L 71 19 101/58 L 100 08/31/18 13:00 08/31/18 13:00 08/31/18 13:00 08/31/18 13:00 08/31/18 13:00 Intake and Output: 08/31/18 08/31/18 06:59 18:59 Intake Total 700 Balance 700 - Medications Medications: Current Medications Calcium Carbonate (Oscal) 500 mg PO BID [facility] Last Admin: 08/31/18 08:04 Dose: Not Given Enoxaparin Sodium (Lovenox) 40 mg SC DAILY [facility]; Protocol Last Admin: 08/31/18 08:04 Dose: Not Given Ergocalciferol (Drisdol 50,000 Intl Units Cap) 1 cap PO SAT [facility] Famotidine (Pepcid) 20 mg PO DAILY [facility] Last Admin: 08/31/18 08:04 Dose: Not Given Gabapentin (Neurontin) 200 mg PO HS [facility] Last Admin: 08/30/18 21:08 Dose: 200 mg Hydrochlorothiazide (Microzide) 12.5 mg PO DAILY [facility] Last Admin: 08/31/18 08:04 Dose: Not Given Piperacillin Sod/Tazobactam (Sod 3.375 gm/ Sodium Chloride) 100 mls @ 100 mls/hr IVPB Q6 [facility]; Protocol Last Admin: 08/31/18 09:00 Dose: 100 mls Vancomycin HCl 1 gm/ Sodium (Chloride) 250 mls @ 166.667 mls/hr IVPB Q12@0000,1200 [facility]; Protocol Last Admin: 08/31/18 11:59 Dose: 166.667 mls/hr Losartan Potassium (Cozaar) 100 mg PO DAILY [facility] Last Admin: 08/31/18 08:04 Dose: Not Given Oxycodone/Acetaminophen (Percocet 5/325 Mg Tab) 1 tab PO Q6 PRN PRN Reason: Pain, severe (8-10) Stop: 08/31/18 18:08 Last Admin: 08/29/18 18:43 Dose: 1 tab - Labs Labs: 08/29/18 05:55 08/29/18 05:55 PT 12.7 Seconds (9.8-13.1) 08/28/18 15:13 INR 1.1 08/28/18 15:13 APTT 33.7 Seconds (25.6-37.1) 08/29/18 05:55 - Constitutional Appears: No Acute Distress - Head Exam Head Exam: NORMAL INSPECTION - Eye Exam Eye Exam: PERRL - ENT Exam ENT Exam: Normal Exam - Neck Exam Neck Exam: Normal Inspection - Respiratory Exam Respiratory Exam: NORMAL BREATHING PATTERN - Cardiovascular Exam Cardiovascular Exam: REGULAR RHYTHM - GI/Abdominal Exam GI & Abdominal Exam: Soft, Normal Bowel Sounds - Extremities Exam Additional comments: s/p R ORIF Lisfrank Fx, R foot dressing with posterior splint in place. - Back Exam Back Exam: NORMAL INSPECTION - Neurological Exam Neurological Exam: Alert, Oriented x3 - Psychiatric Exam Psychiatric exam: Normal Mood - Skin Skin Exam: Warm Assessment and Plan (1) Right foot pain Status: Acute (2) Lisfranc fracture Status: Acute (3) Foot trauma Status: Acute (4) HTN (hypertension) Status: Chronic - Assessment and Plan (Free Text) Plan: Continue Zosyn, Vanco, Lovenox, Percocet and rest of Tx, PT
[2018-08-31] MEDS: Oxycodone/Acetaminophen 5/325 mg Tab PO PRN (15:04)
[2018-08-31] MEDS ORDERED: Oxycodone/Acetaminophen 5/325 mg Tab PO PRN (20:22)
[2018-09-01] MEDS: Oxycodone/Acetaminophen 5/325 mg Tab PO PRN ×4 (00:18→19:22)
[2018-09-01] MEDS: Piperacillin/Tazobact 3.375 GM in Sodium Chloride 0.9% 100 ML IVPB SCH ×4 (05:53→22:04)
[2018-09-01] MEDS ORDERED: Ergocalciferol 50,000 Intl Units Cap PO SCH (09:00)
[2018-09-01] MEDS: Enoxaparin 40 mg Syringe SC SCH (09:17)
--- NOTE | 2018-09-01 14:25 | CP.PCM.PN ---
Subjective - Date & Time of Evaluation Date of Evaluation: 09/01/18 Time of Evaluation: 14:23 - Subjective Subjective: Podiatry Progress Note: Dr. Saunders 67 year old female patient seen and evaluated POD#1 R Trina COTTER. Patient states that she is in minimal pain today. She denies any acute events overnight. Patient is accompanied by family at today's visit. Denies nausea/vomiting/fever. Objective - Vital Signs/Intake and Output Vital Signs (last 24 hours): Temp Pulse Resp BP Pulse Ox 97.8 F 60 20 122/68 98 09/01/18 08:34 09/01/18 09:16 09/01/18 08:34 09/01/18 09:16 09/01/18 08:34 - Medications Medications: Current Medications Calcium Carbonate (Oscal) 500 mg PO BID [facility] Last Admin: 09/01/18 09:17 Dose: 500 mg Enoxaparin Sodium (Lovenox) 40 mg SC DAILY [facility]; Protocol Last Admin: 09/01/18 09:17 Dose: 40 mg Ergocalciferol (Drisdol 50,000 Intl Units Cap) 1 cap PO SAT [facility] Last Admin: 09/01/18 09:17 Dose: 1 cap Famotidine (Pepcid) 20 mg PO DAILY [facility] Last Admin: 09/01/18 09:18 Dose: 20 mg Gabapentin (Neurontin) 200 mg PO HS [facility] Last Admin: 08/31/18 21:56 Dose: 200 mg Hydrochlorothiazide (Microzide) 12.5 mg PO DAILY [facility] Last Admin: 09/01/18 09:17 Dose: 12.5 mg Vancomycin HCl 1 gm/ Sodium (Chloride) 250 mls @ 166.667 mls/hr IVPB Q12@0000,1200 [facility]; Protocol Last Admin: 09/01/18 12:13 Dose: 166.667 mls/hr Piperacillin Sod/Tazobactam (Sod 3.375 gm/ Sodium Chloride) 100 mls @ 100 mls/ hr IVPB Q6H [facility]; Protocol Last Admin: 09/01/18 10:07 Dose: 100 mls/hr Losartan Potassium (Cozaar) 100 mg PO DAILY [facility] Last Admin: 09/01/18 09:16 Dose: 100 mg Oxycodone/Acetaminophen (Percocet 5/325 Mg Tab) 1 tab PO Q4 PRN PRN Reason: Pain, moderate (4-7) Stop: 09/03/18 20:23 Last Admin: 08/31/18 20:45 Dose: 1 tab Oxycodone/Acetaminophen (Percocet 5/325 Mg Tab) 2 tab PO Q4 PRN PRN Reason: Pain, severe (8-10) Stop: 09/03/18 20:23 Last Admin: 09/01/18 14:14 Dose: 2 tab - Labs Labs: 08/29/18 05:55 08/29/18 05:55 PT 12.7 Seconds (9.8-13.1) 08/28/18 15:13 INR 1.1 08/28/18 15:13 APTT 33.7 Seconds (25.6-37.1) 08/29/18 05:55 - Constitutional Appears: Non-toxic, No Acute Distress - Head Exam Head Exam: ATRAUMATIC, NORMOCEPHALIC - Extremities Exam Additional comments: Posterior splint left clean/dry/intact Patient able to wiggle toe NVS intact - Neurological Exam Neurological Exam: Alert, Awake, Oriented x3 - Psychiatric Exam Psychiatric exam: Normal Affect, Normal Mood Assessment and Plan - Assessment and Plan (Free Text) Assessment: 67 year old female patient seen and evaluated POD#1 R Lisfranc ORIF Plan: Patient was seen and evaluated Plan discussed with Dr. Saunders Posterior splint left c/d/i at this time NWB to RLE with the use of crutches Discussed importance of RICE protocol Patient stable from podiatry standpoint Upon d/c patient to follow up in Podiatry Clinic at [facility] on Monday with Dr. Saunders
--- NOTE | 2018-09-01 14:40 | CP.PCM.PN ---
Subjective - Date & Time of Evaluation Date of Evaluation: 09/01/18 Time of Evaluation: 12:30 - Subjective Subjective: F/U R foot Fx., s/p ORIF Pt c/o of pain in R foot, walking with the walker with no bearing weight in the foot Objective - Vital Signs/Intake and Output Vital Signs (last 24 hours): Temp Pulse Resp BP Pulse Ox 97.8 F 60 20 122/68 98 09/01/18 08:34 09/01/18 09:16 09/01/18 08:34 09/01/18 09:16 09/01/18 08:34 - Medications Medications: Current Medications Calcium Carbonate (Oscal) 500 mg PO BID [facility] Last Admin: 09/01/18 09:17 Dose: 500 mg Enoxaparin Sodium (Lovenox) 40 mg SC DAILY [facility]; Protocol Last Admin: 09/01/18 09:17 Dose: 40 mg Ergocalciferol (Drisdol 50,000 Intl Units Cap) 1 cap PO SAT [facility] Last Admin: 09/01/18 09:17 Dose: 1 cap Famotidine (Pepcid) 20 mg PO DAILY [facility] Last Admin: 09/01/18 09:18 Dose: 20 mg Gabapentin (Neurontin) 200 mg PO HS [facility] Last Admin: 08/31/18 21:56 Dose: 200 mg Hydrochlorothiazide (Microzide) 12.5 mg PO DAILY [facility] Last Admin: 09/01/18 09:17 Dose: 12.5 mg Vancomycin HCl 1 gm/ Sodium (Chloride) 250 mls @ 166.667 mls/hr IVPB Q12@0000,1200 [facility]; Protocol Last Admin: 09/01/18 12:13 Dose: 166.667 mls/hr Piperacillin Sod/Tazobactam (Sod 3.375 gm/ Sodium Chloride) 100 mls @ 100 mls/hr IVPB Q6H [facility]; Protocol Last Admin: 09/01/18 10:07 Dose: 100 mls/hr Losartan Potassium (Cozaar) 100 mg PO DAILY [facility] Last Admin: 09/01/18 09:16 Dose: 100 mg Oxycodone/Acetaminophen (Percocet 5/325 Mg Tab) 1 tab PO Q4 PRN PRN Reason: Pain, moderate (4-7) Stop: 09/03/18 20:23 Last Admin: 08/31/18 20:45 Dose: 1 tab Oxycodone/Acetaminophen (Percocet 5/325 Mg Tab) 2 tab PO Q4 PRN PRN Reason: Pain, severe (8-10) Stop: 09/03/18 20:23 Last Admin: 09/01/18 14:14 Dose: 2 tab - Labs Labs: 08/29/18 05:55 08/29/18 05:55 PT 12.7 Seconds (9.8-13.1) 08/28/18 15:13 INR 1.1 08/28/18 15:13 APTT 33.7 Seconds (25.6-37.1) 08/29/18 05:55 - Constitutional Appears: No Acute Distress - Head Exam Head Exam: NORMAL INSPECTION - Eye Exam Eye Exam: PERRL - ENT Exam ENT Exam: Normal Exam - Neck Exam Neck Exam: Normal Inspection - Respiratory Exam Respiratory Exam: NORMAL BREATHING PATTERN - Cardiovascular Exam Cardiovascular Exam: REGULAR RHYTHM - GI/Abdominal Exam GI & Abdominal Exam: Soft, Normal Bowel Sounds - Extremities Exam Additional comments: R leg with cayetano wrap and splint - Back Exam Back Exam: NORMAL INSPECTION - Neurological Exam Neurological Exam: Alert, Oriented x3 - Psychiatric Exam Psychiatric exam: Normal Affect, Normal Mood - Skin Skin Exam: Warm Assessment and Plan (1) Right foot pain Status: Acute (2) Lisfranc fracture Status: Acute (3) Foot trauma Status: Acute (4) HTN (hypertension) Status: Chronic - Assessment and Plan (Free Text) Plan: Continue Zosyn, Vanco, Percocet, rest of Tx and PT
[2018-09-02] MEDS: Oxycodone/Acetaminophen 5/325 mg Tab PO PRN ×2 (03:24→22:47)
--- NOTE | 2018-09-02 04:23 | OP ---
PROCEDURE DATE: 08/31/2018 SURGEON: Zac Saunders DPM PRIMARY RN HYPERBARIC: Patricia Matos DPM, PGY-3 SECONDARY RN HYPERBARIC: Kathleen Reich DPM, PGY-3; Miguel Fields DPM, PGY-2; Janice Ca DPM, PGY-2 ANESTHESIOLOGIST: Dawit Oswald MD TYPE OF ANESTHESIA: General LMA with local anesthetic. PREOPERATIVE DIAGNOSIS: Right foot tarsometatarsal joint fracture with first ray subluxation. POSTOPERATIVE DIAGNOSIS: Right foot tarsometatarsal joint fracture with first ray subluxation. PROCEDURE: 1) Right foot Lisfranc joint open reduction with internal fixation. 2) Fluoroscopy. INDICATIONS: The patient is a 67-year-old female with the above-stated diagnosis, suffered secondary to a traumatic injury. The patient now presents for surgical intervention of the right foot fracture subluxation and joint instability. The patient signed the surgical consent after careful explanation of risks, benefits, complications, and potential alternatives to the proposed surgical procedure. No guarantees were either given or implied. All the patient's questions were answered to her satisfaction. PREPARATION: The patient's NPO status was confirmed prior to bringing the patient to the operating room. The patient was brought into the operating room and placed on the operating room table in a supine position. A well-padded pneumatic tourniquet was applied at the mid calf level of the right lower extremity and was set to 250 mmHg to be inflated once the procedure began. Once general anesthetic was confirmed to have been achieved, the patient received a total of 16 mL of 0.5% Marcaine plain in a local block type fashion to the right postsurgical areas. Once local anesthetic was confirmed to have been achieved, the patient's right foot was then prepped and draped in the usual sterile manner. Foot was exsanguinated, tourniquet was inflated, and the procedure began. DESCRIPTION OF PROCEDURE: Right foot Lisfranc open reduction with internal fixation: Attention was then directed to the medial aspect to the patient's right foot where under fluoroscopic triangulation medial border of medial cuneiform was identified and marked in midsubstance level superior to the insertion of the tibialis anterior tendon. Next, under fluoroscopic evaluation and triangulation, lateral border of second metatarsal space was evaluated and marked. At this time, a pair of 1.5 cm of linear longitudinal incision was made along these two anatomical marked points using #15 blade. These incisions were extended down to the subcutaneous tissue layers via sharp dissection with care being taken to identify, avoid and retract all vital neurovascular structures. All bleeders were cauterized and ligated as needed and encountered. Periosteal incision was performed overlying the identified markings of both bones. Care was taken on the medial incision to preserve and adequately retract tibialis anterior tendon inferiorly to avoid iatrogenic damage, which did not appear during the procedure in this case. At this time with access achieved on the medial first ray and lateral border of the second metatarsal base, fluoroscopy was introduced and evaluation was performed. At this time, a Snapvine Denise screw targeting compression guide was inserted and affixed to compression stabilized Lisfranc apparatus. Care was taken to make sure that lateral portion of the targeting guide was superior to transverse inferior fracture of the second metatarsal base which was now displaced preoperatively. Upon application and compression through targeting guide, fluoroscopy evaluation of Lisfranc joint was assessed and found to be adequate. There was no disturbance of plantar transverse second metatarsal fracture. At this time, guide K-wire was then drilled from medial to lateral through the targeting guide. At this time, K-wire targeting guide pin was removed and cannulated to a drill bit, which was used to drill over cannulated guide K-wire from medial cuneiform to the second metatarsal base. At this time, screw was measured and with compression maintained a Lopez 3.75 x 38 solid cortical screw was driven in line with the targeting guide and adequately compressed down to provide static compression along the Lisfranc joint. Compression/targeting guide was removed and stability of Lisfranc joint was assessed with intraoperative stress under Fluoroscopy and was found to be adequately stable with no recurrence of instability. At this time, it was noted that there was redundant intercuneiform diastasis between the medial and intermediate cuneiform. Intraoperative decision was made to drill a second stabilizing screw from medial cuneiform into intermediate cuneiform. Guide K-wire was then used to drill along the inferior half of the medial cuneiform into the intermediate cuneiform. Nail reduction was utilized to compress cuneiforms together and then following standard AO principles and techniques, a compression Lopez 3.7 x 28 mm screw was driven from medial to lateral across the cuneiforms and was found to be adequately stable. Surgical site was then re-stressed under fluoroscopy and found to be stable and maintained. Surgical sites were then flushed with copious amounts of sterile saline. Periosteal structures were reapproximated using 3-0 Vicryl, subcutaneous tissues were reapproximated using 4-0 Vicryl, skin was reapproximated using 4-0 nylon in a simple suture type fashion. Surgical sites were then received an additional 10 mL of 0.5% Marcaine plain in a local block type fashion. Surgical sites were cleansed and dressed with Betadine-soaked Adaptic, 4x4 gauze, Kerlix, Corby, Webril, and the patient was placed in a well-padded posterior splint. POSTOPERATIVE CONDITION: The patient tolerated the anesthesia and procedure well and was escorted to the recovery room with vital signs stable and neurovascular status intact. The patient had no complaints or complications. Patricia Matos DPM Zac Saunders DPM [facility]
[2018-09-02] MEDS: Piperacillin/Tazobact 3.375 GM in Sodium Chloride 0.9% 100 ML IVPB SCH ×4 (04:47→22:49)
[2018-09-02] MEDS: Enoxaparin 40 mg Syringe SC SCH (10:01)
--- NOTE | 2018-09-02 23:25 | CP.PCM.PN ---
Subjective - Date & Time of Evaluation Date of Evaluation: 09/02/18 Time of Evaluation: 11:10 - Subjective Subjective: Pain R foot controlled with pain medication Objective - Vital Signs/Intake and Output Vital Signs (last 24 hours): Temp Pulse Resp BP Pulse Ox 97.9 F 75 20 109/63 99 09/02/18 17:20 09/02/18 17:20 09/02/18 17:20 09/02/18 17:20 09/02/18 17:20 - Medications Medications: Current Medications Calcium Carbonate (Oscal) 500 mg PO BID [facility]S [facility]CLUDE 234 BEDS AT THE [facility] Last Admin: 09/02/18 16:28 Dose: 500 mg Enoxaparin Sodium (Lovenox) 40 mg SC DAILY [facility]S [facility]CLUDE 234 BEDS AT THE [facility]; Protocol Last Admin: 09/02/18 10:01 Dose: 40 mg Ergocalciferol (Drisdol 50,000 Intl Units Cap) 1 cap PO SAT [facility]S INCLUDE 234 BEDS AT THE [facility] Last Admin: 09/01/18 09:17 Dose: 1 cap Famotidine (Pepcid) 20 mg PO DAILY [facility]S [facility]CLUDE 234 BEDS AT THE [facility] Last Admin: 09/02/18 10:03 Dose: 20 mg Gabapentin (Neurontin) 200 mg PO HS COUNTS INCLUDE 234 BEDS AT THE [facility] Last Admin: 09/02/18 21:43 Dose: 200 mg Hydrochlorothiazide (Microzide) 12.5 mg PO DAILY COUNTS INCLUDE 234 BEDS AT THE [facility] Last Admin: 09/02/18 10:01 Dose: 12.5 mg Vancomycin HCl 1 gm/ Sodium (Chloride) 250 mls @ 166.667 mls/hr IVPB Q12@0000,1200 COUNTS INCLUDE 234 BEDS AT THE [facility]; Protocol Last Admin: 09/02/18 12:14 Dose: 166.667 mls/hr Piperacillin Sod/Tazobactam (Sod 3.375 gm/ Sodium Chloride) 100 mls @ 100 mls/hr IVPB Q6H COUNTS INCLUDE 234 BEDS AT THE [facility]; Protocol Last Admin: 09/02/18 22:49 Dose: 100 mls/hr Losartan Potassium (Cozaar) 100 mg PO DAILY COUNTS INCLUDE 234 BEDS AT THE [facility] Last Admin: 09/02/18 10:01 Dose: 100 mg Oxycodone/Acetaminophen (Percocet 5/325 Mg Tab) 1 tab PO Q4 PRN PRN Reason: Pain, moderate (4-7) Stop: 09/03/18 20:23 Last Admin: 08/31/18 20:45 Dose: 1 tab Oxycodone/Acetaminophen (Percocet 5/325 Mg Tab) 2 tab PO Q4 PRN PRN Reason: Pain, severe (8-10) Stop: 09/03/18 20:23 Last Admin: 09/02/18 22:47 Dose: 2 tab - Labs Labs: 08/29/18 05:55 08/29/18 05:55 PT 12.7 Seconds (9.8-13.1) 08/28/18 15:13 INR 1.1 08/28/18 15:13 APTT 33.7 Seconds (25.6-37.1) 08/29/18 05:55 - Constitutional Appears: No Acute Distress - Head Exam Head Exam: NORMAL INSPECTION - Eye Exam Eye Exam: PERRL - ENT Exam ENT Exam: Normal Exam - Neck Exam Neck Exam: Normal Inspection - Respiratory Exam Respiratory Exam: Clear to Ausculation Bilateral - Cardiovascular Exam Cardiovascular Exam: REGULAR RHYTHM - GI/Abdominal Exam GI & Abdominal Exam: Soft, Normal Bowel Sounds - Extremities Exam Extremities Exam: Tenderness (R foot) Additional comments: R foot dressing with posterior splint - Back Exam Back Exam: NORMAL INSPECTION - Neurological Exam Neurological Exam: Alert, CN II-XII Intact, Oriented x3. absent: Motor Sensory Deficit - Psychiatric Exam Psychiatric exam: Normal Affect - Skin Skin Exam: Warm Assessment and Plan (1) Right foot pain Status: Acute (2) Lisfranc fracture Status: Acute (3) Foot trauma Status: Acute (4) HTN (hypertension) Status: Chronic - Assessment and Plan (Free Text) Plan: continue Lovenox, Percocet, Zosyn, Vanco and rest of Tx, PT
[2018-09-03] MEDS: Piperacillin/Tazobact 3.375 GM in Sodium Chloride 0.9% 100 ML IVPB SCH (05:11)
[2018-09-03 06:56] LABS: BASO % 0.5 % (0.0-2.0); EOS # 0.2 K/uL (0.0-0.7); EOS % 2.9 % (0.0-4.0); HEMOGLOBIN 10.5 g/dL (12.0-16.0); LYMPH # 1.6 K/uL (1.0-4.3); LYMPH % 28.4 % (20.0-40.0); MEAN CELL VOLUME 87.8 fl (81.0-99.0); MEAN CORPUSCULAR HEMOGLOBIN 29.7 pg (27.0-31.0); MEAN CORPUSCULAR HGB CONC 33.8 g/dL (33.0-37.0); MEAN PLATELET VOLUME 9.7 fl (7.2-11.7); MONO # 0.5 K/uL (0.0-0.8); MONO % 8.7 % (0.0-10.0); NEUT # 3.5 K/uL (1.8-7.0); NEUT % 59.5 % (50.0-75.0); NRBC % 0.1 % (0.0-0.0); RBC 3.55 Mil/uL (3.80-5.20); RED CELL DISTRIBUTION WIDTH 12.8 % (11.5-14.5); WHITE BLOOD COUNT 5.8 K/uL (4.8-10.8)
[2018-09-03 07:02] LABS: ALB/GLOB RATIO 1.2 (1.0-2.1); ALBUMIN 3.7 g/dL (3.5-5.0); ALT/SGPT 44 U/L (9-52); AST/SGOT 43 U/L (14-36); BLOOD UREA NITROGEN 13 mg/dl (7-17); CALCIUM 9.7 mg/dL (8.4-10.2); GFR NON-AFRICAN AMERICAN > 60
--- NOTE | 2018-09-03 08:54 | CP.PCM.PN ---
Subjective - Date & Time of Evaluation Date of Evaluation: 09/03/18 Time of Evaluation: 08:52 - Subjective Subjective: Podiatry Progress Note: Dr. Saunders 67 year old female patient seen and evaluated POD#3 R Trina COTTER. Patient states that she is in minimal pain today. Denies any acute events overnight, no new pedal complaints. Denies nausea/vomiting/fever/shortness of breath/chills. Objective - Vital Signs/Intake and Output Vital Signs (last 24 hours): Temp Pulse Resp BP Pulse Ox 97.9 F 62 19 105/65 99 09/03/18 08:32 09/03/18 08:32 09/03/18 08:32 09/03/18 08:32 09/03/18 08:32 - Medications Medications: Current Medications Calcium Carbonate (Oscal) 500 mg PO BID [facility] Last Admin: 09/02/18 16:28 Dose: 500 mg Enoxaparin Sodium (Lovenox) 40 mg SC DAILY [facility]; Protocol Last Admin: 09/02/18 10:01 Dose: 40 mg Ergocalciferol (Drisdol 50,000 Intl Units Cap) 1 cap PO SAT [facility] Last Admin: 09/01/18 09:17 Dose: 1 cap Famotidine (Pepcid) 20 mg PO DAILY [facility] Last Admin: 09/02/18 10:03 Dose: 20 mg Gabapentin (Neurontin) 200 mg PO HS [facility] Last Admin: 09/02/18 21:43 Dose: 200 mg Hydrochlorothiazide (Microzide) 12.5 mg PO DAILY [facility] Last Admin: 09/02/18 10:01 Dose: 12.5 mg Vancomycin HCl 1 gm/ Sodium (Chloride) 250 mls @ 166.667 mls/hr IVPB Q12@0000,1200 [facility]; Protocol Last Admin: 09/03/18 00:59 Dose: 166.667 mls/hr Piperacillin Sod/Tazobactam (Sod 3.375 gm/ Sodium Chloride) 100 mls @ 100 mls/ hr IVPB Q6H [facility]; Protocol Last Admin: 09/03/18 05:11 Dose: 100 mls/hr Losartan Potassium (Cozaar) 100 mg PO DAILY [facility] Last Admin: 09/02/18 10:01 Dose: 100 mg Oxycodone/Acetaminophen (Percocet 5/325 Mg Tab) 1 tab PO Q4 PRN PRN Reason: Pain, moderate (4-7) Stop: 09/03/18 20:23 Last Admin: 08/31/18 20:45 Dose: 1 tab Oxycodone/Acetaminophen (Percocet 5/325 Mg Tab) 2 tab PO Q4 PRN PRN Reason: Pain, severe (8-10) Stop: 09/03/18 20:23 Last Admin: 09/02/18 22:47 Dose: 2 tab - Labs Labs: 09/03/18 06:38 09/03/18 06:38 PT 12.7 Seconds (9.8-13.1) 08/28/18 15:13 INR 1.1 08/28/18 15:13 APTT 33.7 Seconds (25.6-37.1) 08/29/18 05:55 - Constitutional Appears: Non-toxic, No Acute Distress - Head Exam Head Exam: ATRAUMATIC, NORMOCEPHALIC - Extremities Exam Additional comments: Posterior splint left clean/dry/intact Patient able to wiggle toe NVS intact - Neurological Exam Neurological Exam: Alert, Awake, Oriented x3 - Psychiatric Exam Psychiatric exam: Normal Affect, Normal Mood Assessment and Plan - Assessment and Plan (Free Text) Assessment: 67 year old female patient seen and evaluated POD#3 R Lisfranc ORIF Plan: Patient was seen and evaluated Plan discussed with Dr. Saunders Posterior splint left c/d/i at this time NWB to RLE with the use of crutches Discussed importance of RICE protocol Patient stable from podiatry standpoint No further podiatric intervention at this time Upon d/c patient to follow up in Podiatry Clinic at [facility] on Monday with Dr. Saunders
[2018-09-03] MEDS: Enoxaparin 40 mg Syringe SC SCH (09:19)
[2018-09-03] MEDS: Oxycodone/Acetaminophen 5/325 mg Tab PO PRN (13:48)
--- NOTE | 2018-09-03 15:31 | CP.PCM.PN ---
Subjective - Date & Time of Evaluation Date of Evaluation: 09/03/18 Time of Evaluation: 12:40 - Subjective Subjective: F/U R Foot Fx, s/p ORIF Minimal pain R foot, walking with a cane with partial weigh bearing. Objective - Vital Signs/Intake and Output Vital Signs (last 24 hours): Temp Pulse Resp BP Pulse Ox 97.9 F 70 19 105/65 96 09/03/18 08:32 09/03/18 10:02 09/03/18 08:32 09/03/18 09:19 09/03/18 10:02 - Medications Medications: Current Medications Calcium Carbonate (Oscal) 500 mg PO BID [facility] Last Admin: 09/03/18 09:20 Dose: 500 mg Enoxaparin Sodium (Lovenox) 40 mg SC DAILY [facility]; Protocol Last Admin: 09/03/18 09:19 Dose: 40 mg Ergocalciferol (Drisdol 50,000 Intl Units Cap) 1 cap PO SAT [facility] Last Admin: 09/01/18 09:17 Dose: 1 cap Famotidine (Pepcid) 20 mg PO DAILY [facility] Last Admin: 09/03/18 09:20 Dose: 20 mg Gabapentin (Neurontin) 200 mg PO HS [facility] Last Admin: 09/02/18 21:43 Dose: 200 mg Hydrochlorothiazide (Microzide) 12.5 mg PO DAILY [facility] Last Admin: 09/03/18 09:20 Dose: 12.5 mg Losartan Potassium (Cozaar) 100 mg PO DAILY [facility] Last Admin: 09/03/18 09:19 Dose: 100 mg Oxycodone/Acetaminophen (Percocet 5/325 Mg Tab) 1 tab PO Q4 PRN PRN Reason: Pain, moderate (4-7) Stop: 09/03/18 20:23 Last Admin: 08/31/18 20:45 Dose: 1 tab Oxycodone/Acetaminophen (Percocet 5/325 Mg Tab) 2 tab PO Q4 PRN PRN Reason: Pain, severe (8-10) Stop: 09/03/18 20:23 Last Admin: 09/03/18 13:48 Dose: 2 tab - Labs Labs: 09/03/18 06:38 09/03/18 06:38 PT 12.7 Seconds (9.8-13.1) 08/28/18 15:13 INR 1.1 08/28/18 15:13 APTT 33.7 Seconds (25.6-37.1) 08/29/18 05:55 - Constitutional Appears: No Acute Distress - Head Exam Head Exam: NORMAL INSPECTION - Eye Exam Eye Exam: PERRL - ENT Exam ENT Exam: Normal Exam - Neck Exam Neck Exam: Normal Inspection - Respiratory Exam Respiratory Exam: NORMAL BREATHING PATTERN - Cardiovascular Exam Cardiovascular Exam: REGULAR RHYTHM - GI/Abdominal Exam GI & Abdominal Exam: Soft, Normal Bowel Sounds - Extremities Exam Extremities Exam: Tenderness (R foot..) Additional comments: R foot with splint and cayetano grap, able to move toes, no neuromuscular deficit. - Back Exam Back Exam: NORMAL INSPECTION - Neurological Exam Neurological Exam: Alert, Oriented x3 - Psychiatric Exam Psychiatric exam: Normal Affect, Normal Mood - Skin Skin Exam: Warm Assessment and Plan (1) Right foot pain Status: Acute (2) Lisfranc fracture Status: Acute (3) Foot trauma Status: Acute (4) HTN (hypertension) Status: Chronic - Assessment and Plan (Free Text) Plan: Continue Vanco, Zosyn, f/u with ID for length of abx.
[2018-09-04] MEDS: Enoxaparin 40 mg Syringe SC SCH (10:26)
--- NOTE | 2018-09-04 12:45 | CP.PCM.PN ---
Subjective - Date & Time of Evaluation Date of Evaluation: 09/04/18 Time of Evaluation: 10:00 - Subjective Subjective: F/U Fx R foot, s/p ORIF Pain in R foot. Objective - Vital Signs/Intake and Output Vital Signs (last 24 hours): Temp Pulse Resp BP Pulse Ox 97.8 F 75 20 119/68 96 09/03/18 23:51 09/04/18 10:35 09/03/18 23:51 09/04/18 10:35 09/03/18 23:51 - Medications Medications: Current Medications Calcium Carbonate (Oscal) 500 mg PO BID [facility] Last Admin: 09/04/18 10:37 Dose: 500 mg Enoxaparin Sodium (Lovenox) 40 mg SC DAILY [facility]; Protocol Last Admin: 09/04/18 10:26 Dose: 40 mg Ergocalciferol (Drisdol 50,000 Intl Units Cap) 1 cap PO SAT [facility] Last Admin: 09/01/18 09:17 Dose: 1 cap Famotidine (Pepcid) 20 mg PO DAILY [facility] Last Admin: 09/04/18 10:38 Dose: 20 mg Gabapentin (Neurontin) 200 mg PO HS [facility] Last Admin: 09/03/18 21:42 Dose: 200 mg Hydrochlorothiazide (Microzide) 12.5 mg PO DAILY [facility] Last Admin: 09/04/18 10:37 Dose: 12.5 mg Losartan Potassium (Cozaar) 100 mg PO DAILY [facility] Last Admin: 09/04/18 10:35 Dose: 100 mg - Labs Labs: 09/03/18 06:38 09/03/18 06:38 PT 12.7 Seconds (9.8-13.1) 08/28/18 15:13 INR 1.1 08/28/18 15:13 APTT 33.7 Seconds (25.6-37.1) 08/29/18 05:55 - Constitutional Appears: No Acute Distress - Head Exam Head Exam: NORMAL INSPECTION - Eye Exam Eye Exam: PERRL - ENT Exam ENT Exam: Normal Exam - Neck Exam Neck Exam: Normal Inspection - Respiratory Exam Respiratory Exam: NORMAL BREATHING PATTERN - Cardiovascular Exam Cardiovascular Exam: REGULAR RHYTHM - GI/Abdominal Exam GI & Abdominal Exam: Soft, Normal Bowel Sounds - Extremities Exam Extremities Exam: Tenderness (R foot) Additional comments: R foot with cayetano and splint, able to move toes, no neuromuscular deficit. - Back Exam Back Exam: NORMAL INSPECTION - Neurological Exam Neurological Exam: Alert, Oriented x3 - Psychiatric Exam Psychiatric exam: Normal Affect, Normal Mood - Skin Skin Exam: Warm Assessment and Plan (1) Right foot pain Status: Acute (2) Lisfranc fracture Status: Acute (3) Foot trauma Status: Acute (4) HTN (hypertension) Status: Chronic - Assessment and Plan (Free Text) Plan: Continue Lovenox and rest of Tx.
[2018-09-05] MEDS ORDERED: Oxycodone/Acetaminophen 5/325 mg Tab PO STA (00:49)
[2018-09-05] MEDS ORDERED: Oxycodone/Acetaminophen 5/325 mg Tab PO PRN (09:43)
[2018-09-05] MEDS: Enoxaparin 40 mg Syringe SC SCH (10:28)
[2018-09-05] MEDS: Oxycodone/Acetaminophen 5/325 mg Tab PO PRN ×2 (10:48→16:13)
--- NOTE | 2018-09-05 11:32 | CP.PCM.PN ---
Subjective - Date & Time of Evaluation Date of Evaluation: 09/05/18 Time of Evaluation: 11:32 - Subjective Subjective: Podiatry Progress Note: Dr. Saunders 67 year old female patient seen and evaluated POD#5 R Trina ORIF. Patient states that she is in minimal pain today. Awaiting placement to [facility]. Denies any acute events overnight, no new pedal complaints. Denies nausea/vomiting/fever/shortness of breath/chills. Objective - Vital Signs/Intake and Output Vital Signs (last 24 hours): Temp Pulse Resp BP Pulse Ox 98.5 F 61 18 119/69 98 09/05/18 08:21 09/05/18 10:27 09/05/18 08:21 09/05/18 10:27 09/05/18 08:21 - Medications Medications: Current Medications Calcium Carbonate (Oscal) 500 mg PO BID [facility] Last Admin: 09/05/18 10:28 Dose: 500 mg Enoxaparin Sodium (Lovenox) 40 mg SC DAILY [facility]; Protocol Last Admin: 09/05/18 10:28 Dose: 40 mg Ergocalciferol (Drisdol 50,000 Intl Units Cap) 1 cap PO SAT [facility] Last Admin: 09/01/18 09:17 Dose: 1 cap Famotidine (Pepcid) 20 mg PO DAILY [facility] Last Admin: 09/05/18 10:27 Dose: 20 mg Gabapentin (Neurontin) 200 mg PO HS [facility] Last Admin: 09/04/18 22:37 Dose: 200 mg Hydrochlorothiazide (Microzide) 12.5 mg PO DAILY [facility] Last Admin: 09/05/18 10:27 Dose: 12.5 mg Losartan Potassium (Cozaar) 100 mg PO DAILY [facility] Last Admin: 09/05/18 10:27 Dose: 100 mg Oxycodone/Acetaminophen (Percocet 5/325 Mg Tab) 1 tab PO Q4 PRN PRN Reason: Pain, moderate (4-7) Stop: 09/08/18 09:44 Oxycodone/Acetaminophen (Percocet 5/325 Mg Tab) 2 tab PO Q4 PRN PRN Reason: Pain, severe (8-10) Stop: 09/08/18 09:44 Last Admin: 09/05/18 10:48 Dose: 2 tab - Labs Labs: 09/03/18 06:38 09/03/18 06:38 PT 12.7 Seconds (9.8-13.1) 08/28/18 15:13 INR 1.1 08/28/18 15:13 APTT 33.7 Seconds (25.6-37.1) 08/29/18 05:55 - Constitutional Appears: Non-toxic, No Acute Distress - Head Exam Head Exam: ATRAUMATIC, NORMOCEPHALIC - Extremities Exam Additional comments: Posterior splint left clean/dry/intact Patient able to wiggle toe NVS intact - Neurological Exam Neurological Exam: Alert, Awake, Oriented x3 - Psychiatric Exam Psychiatric exam: Normal Affect, Normal Mood Assessment and Plan - Assessment and Plan (Free Text) Assessment: 67 year old female patient seen and evaluated POD#5 R Lisfranc ORIF Plan: Patient was seen and evaluated Plan discussed with Dr. Saunders Posterior splint left c/d/i at this time NWB to RLE with the use of crutches Discussed importance of RICE protocol Patient stable from podiatry standpoint No further podiatric intervention at this time Upon d/c patient to follow up in Podiatry Clinic at [facility] on Monday with Dr. Saunders
--- NOTE | 2018-09-05 14:51 | CP.PCM.PN ---
Subjective - Date & Time of Evaluation Date of Evaluation: 09/05/18 Time of Evaluation: 10:20 - Subjective Subjective: F/U s/p R ORIF, Lisfrank Fx. Pt with minimal pain R foot. Objective - Vital Signs/Intake and Output Vital Signs (last 24 hours): Temp Pulse Resp BP Pulse Ox 98.5 F 61 18 119/69 98 09/05/18 08:21 09/05/18 10:27 09/05/18 08:21 09/05/18 10:27 09/05/18 08:21 - Medications Medications: Current Medications Calcium Carbonate (Oscal) 500 mg PO BID [facility] Last Admin: 09/05/18 10:28 Dose: 500 mg Enoxaparin Sodium (Lovenox) 40 mg SC DAILY [facility]; Protocol Last Admin: 09/05/18 10:28 Dose: 40 mg Ergocalciferol (Drisdol 50,000 Intl Units Cap) 1 cap PO SAT [facility] Last Admin: 09/01/18 09:17 Dose: 1 cap Famotidine (Pepcid) 20 mg PO DAILY [facility] Last Admin: 09/05/18 10:27 Dose: 20 mg Gabapentin (Neurontin) 200 mg PO HS [facility] Last Admin: 09/04/18 22:37 Dose: 200 mg Hydrochlorothiazide (Microzide) 12.5 mg PO DAILY [facility] Last Admin: 09/05/18 10:27 Dose: 12.5 mg Losartan Potassium (Cozaar) 100 mg PO DAILY [facility] Last Admin: 09/05/18 10:27 Dose: 100 mg Oxycodone/Acetaminophen (Percocet 5/325 Mg Tab) 1 tab PO Q4 PRN PRN Reason: Pain, moderate (4-7) Stop: 09/08/18 09:44 Oxycodone/Acetaminophen (Percocet 5/325 Mg Tab) 2 tab PO Q4 PRN PRN Reason: Pain, severe (8-10) Stop: 09/08/18 09:44 Last Admin: 09/05/18 10:48 Dose: 2 tab - Labs Labs: 09/03/18 06:38 09/03/18 06:38 PT 12.7 Seconds (9.8-13.1) 08/28/18 15:13 INR 1.1 08/28/18 15:13 APTT 33.7 Seconds (25.6-37.1) 08/29/18 05:55 - Constitutional Appears: No Acute Distress - Head Exam Head Exam: NORMAL INSPECTION - Eye Exam Eye Exam: PERRL - ENT Exam ENT Exam: Normal Exam - Neck Exam Neck Exam: Normal Inspection - Respiratory Exam Respiratory Exam: NORMAL BREATHING PATTERN - Cardiovascular Exam Cardiovascular Exam: REGULAR RHYTHM - GI/Abdominal Exam GI & Abdominal Exam: Soft, Normal Bowel Sounds - Extremities Exam Extremities Exam: Tenderness (mild R foot) - Back Exam Additional comments: Splint in R foot, able to move toes, no neuromuscular deficit - Neurological Exam Neurological Exam: Alert, Oriented x3 - Psychiatric Exam Psychiatric exam: Normal Affect, Normal Mood - Skin Skin Exam: Warm Assessment and Plan (1) Right foot pain Status: Acute (2) Lisfranc fracture Status: Acute (3) Foot trauma Status: Acute (4) HTN (hypertension) Status: Chronic - Assessment and Plan (Free Text) Plan: Continue Oxycodone, PT, OT, awaiting for [facility].
[2018-09-06] MEDS: Enoxaparin 40 mg Syringe SC SCH (08:48)
--- NOTE | 2018-09-06 14:58 | CP.PCM.PN ---
Subjective - Date & Time of Evaluation Date of Evaluation: 09/06/18 Time of Evaluation: 08:35 - Subjective Subjective: F/U R Objective - Vital Signs/Intake and Output Vital Signs (last 24 hours): Temp Pulse Resp BP Pulse Ox 98.2 F 65 20 110/61 97 09/06/18 13:00 09/06/18 13:00 09/06/18 13:00 09/06/18 13:00 09/06/18 13:00 - Medications Medications: Current Medications Calcium Carbonate (Oscal) 500 mg PO BID [facility] [place] Last Admin: 09/06/18 08:52 Dose: 500 mg Enoxaparin Sodium (Lovenox) 40 mg SC DAILY [facility] [place]; Protocol Last Admin: 09/06/18 08:48 Dose: 40 mg Ergocalciferol (Drisdol 50,000 Intl Units Cap) 1 cap PO SAT [facility] [place] Last Admin: 09/01/18 09:17 Dose: 1 cap Famotidine (Pepcid) 20 mg PO DAILY [facility] [place] Last Admin: 09/06/18 08:52 Dose: 20 mg Gabapentin (Neurontin) 200 mg PO HS [facility] [place] Last Admin: 09/05/18 23:18 Dose: 200 mg Hydrochlorothiazide (Microzide) 12.5 mg PO DAILY [facility] [place] Last Admin: 09/06/18 08:52 Dose: 12.5 mg Losartan Potassium (Cozaar) 100 mg PO DAILY [facility] [place] Last Admin: 09/06/18 08:52 Dose: 100 mg Oxycodone/Acetaminophen (Percocet 5/325 Mg Tab) 1 tab PO Q4 PRN PRN Reason: Pain, moderate (4-7) Stop: 09/08/18 09:44 Oxycodone/Acetaminophen (Percocet 5/325 Mg Tab) 2 tab PO Q4 PRN PRN Reason: Pain, severe (8-10) Stop: 09/08/18 09:44 Last Admin: 09/05/18 16:13 Dose: 2 tab - Labs Labs: 09/03/18 06:38 09/03/18 06:38 PT 12.7 Seconds (9.8-13.1) 08/28/18 15:13 INR 1.1 08/28/18 15:13 APTT 33.7 Seconds (25.6-37.1) 08/29/18 05:55 - Constitutional Appears: No Acute Distress - Head Exam Head Exam: NORMAL INSPECTION - Eye Exam Eye Exam: PERRL - ENT Exam ENT Exam: Normal Exam - Neck Exam Neck Exam: Normal Inspection - Respiratory Exam Respiratory Exam: NORMAL BREATHING PATTERN - Cardiovascular Exam Cardiovascular Exam: REGULAR RHYTHM - GI/Abdominal Exam GI & Abdominal Exam: Soft, Normal Bowel Sounds - Extremities Exam Extremities Exam: Tenderness (mild R foot) Additional comments: Splint in R foot, able to move toes. - Back Exam Back Exam: NORMAL INSPECTION Assessment and Plan (1) Lisfranc fracture Status: Acute (2) S/P ORIF (open reduction internal fixation) fracture Status: Acute (3) Right foot pain Status: Acute (4) Foot trauma Status: Acute (5) HTN (hypertension) Status: Chronic
[2018-09-06 16:08] VITALS: BP 102/65; PULSE 59; RESP 18; TEMP 97.6; O2SAT 99
--- NOTE | 2018-09-06 22:17 | CP.PCM.DIS ---
Provider - Provider Date of Admission: 08/28/18 14:00 Attending physician: Alejandro Chi MD Consults: 08/28/18 14:01 Physician Consult Stat Comment: Consulting Provider: Zac Saunders Consulting Physician: Zac Saunders Reason for Consult: Foot pain 08/29/18 12:38 Cardiology Consult Routine Comment: Consulting Provider: Vitor Rojas Consulting Physician: Vitor Rojas Reason for Consult: Cardiac clearance for OR Diagnosis - Discharge Diagnosis (1) Lisfranc fracture Status: Acute Priority: High (2) S/P ORIF (open reduction internal fixation) fracture Status: Acute (3) Right foot pain Status: Acute Priority: High (4) Foot trauma Status: Acute Priority: High (5) HTN (hypertension) Status: Chronic Priority: Low Hospital Course - Lab Results Lab Results: Most Recent Lab Values WBC 5.8 K/uL (4.8-10.8) 09/03/18 06:38 RBC 3.55 Mil/uL (3.80-5.20) L 09/03/18 06:38 Hgb 10.5 g/dL (12.0-16.0) L 09/03/18 06:38 Hct 31.2 % (34.0-47.0) L 09/03/18 06:38 MCV 87.8 fl (81.0-99.0) 09/03/18 06:38 MCH 29.7 pg (27.0-31.0) 09/03/18 06:38 MCHC 33.8 g/dL (33.0-37.0) 09/03/18 06:38 RDW 12.8 % (11.5-14.5) 09/03/18 06:38 Plt Count 195 K/uL (130-400) 09/03/18 06:38 MPV 9.7 fl (7.2-11.7) 09/03/18 06:38 Neut % (Auto) 59.5 % (50.0-75.0) 09/03/18 06:38 Lymph % (Auto) 28.4 % (20.0-40.0) 09/03/18 06:38 Ritchie % (Auto) 8.7 % (0.0-10.0) 09/03/18 06:38 Eos % (Auto) 2.9 % (0.0-4.0) 09/03/18 06:38 Baso % (Auto) 0.5 % (0.0-2.0) 09/03/18 06:38 Neut # (Auto) 3.5 K/uL (1.8-7.0) 09/03/18 06:38 Lymph # (Auto) 1.6 K/uL (1.0-4.3) 09/03/18 06:38 Ritchie # (Auto) 0.5 K/uL (0.0-0.8) 09/03/18 06:38 Eos # (Auto) 0.2 K/uL (0.0-0.7) 09/03/18 06:38 Baso # (Auto) 0.0 K/uL (0.0-0.2) 09/03/18 06:38 PT 12.7 Seconds (9.8-13.1) 08/28/18 15:13 INR 1.1 08/28/18 15:13 APTT 33.7 Seconds (25.6-37.1) 08/29/18 05:55 Sodium 140 mmol/l (132-148) 09/03/18 06:38 Potassium 3.7 MMOL/L (3.6-5.0) 09/03/18 06:38 Chloride 105 mmol/L (98-107) 09/03/18 06:38 Carbon Dioxide 24 mmol/L (22-30) 09/03/18 06:38 Anion Gap 15 (10-20) 09/03/18 06:38 BUN 13 mg/dl (7-17) 09/03/18 06:38 Creatinine 0.9 mg/dl (0.7-1.2) 09/03/18 06:38 Est GFR ( Amer) > 60 09/03/18 06:38 Est GFR (Non-Af Amer) > 60 09/03/18 06:38 Random Glucose 118 mg/dL (65-105) H 09/03/18 06:38 Calcium 9.7 mg/dL (8.4-10.2) 09/03/18 06:38 Magnesium 2.0 MG/DL (1.6-2.3) 09/03/18 06:38 Total Bilirubin 0.5 mg/dl (0.2-1.3) 09/03/18 06:38 AST 43 U/L (14-36) H D 09/03/18 06:38 ALT 44 U/L (9-52) 09/03/18 06:38 Alkaline Phosphatase 75 U/L (38-126) 09/03/18 06:38 Total Protein 6.8 G/DL (6.3-8.2) 09/03/18 06:38 Albumin 3.7 g/dL (3.5-5.0) 09/03/18 06:38 Globulin 3.1 gm/dL (2.2-3.9) 09/03/18 06:38 Albumin/Globulin Ratio 1.2 (1.0-2.1) 09/03/18 06:38 Triglycerides 120 mg/DL (0-149) 08/29/18 05:55 Cholesterol 200 mg/dL (0-199) H 08/29/18 05:55 LDL Cholesterol Direct 91 mg/dL (0-129) 08/29/18 05:55 HDL Cholesterol 67 MG/DL (30-70) 08/29/18 05:55 Thyroxine (T4) 5.37 ug/dl (5.5-11.0) L 08/29/18 05:55 TSH 3rd Generation 2.31 mIU/ML (0.46-4.68) 08/29/18 05:55 Urine Color Yellow (YELLOW) 08/29/18 10:20 Urine Clarity Clear (Clear) 08/29/18 10:20 Urine pH 6.0 (5.0-8.0) 08/29/18 10:20 Ur Specific [place] 1.014 (1.003-1.030) 08/29/18 10:20 Urine Protein Negative mg/dL (NEGATIVE) 08/29/18 10:20 Urine Glucose (UA) Neg mg/dL (NEGATIVE) 08/29/18 10:20 Urine Ketones Negative mg/dL (NEGATIVE) 08/29/18 10:20 Urine Blood Negative (NEGATIVE) 08/29/18 10:20 Urine Nitrate Negative (NEGATIVE) 08/29/18 10:20 Urine Bilirubin Negative (NEGATIVE) 08/29/18 10:20 Urine Urobilinogen 0.2-1.0 mg/dL (0.2-1.0) 08/29/18 10:20 Ur Leukocyte Esterase Neg Uriel/uL (Negative) 08/29/18 10:20 Urine RBC (Auto) 3 /hpf (0-3) 08/29/18 10:20 Urine Microscopic WBC 1 /hpf (0-5) 08/29/18 10:20 Ur Squamous Epith Cells 3 /hpf (0-5) 08/29/18 10:20 Discharge Exam - Head Exam Head Exam: NORMAL INSPECTION Discharge Plan - Follow Up Plan Condition: FAIR Disposition: REHAB FACILITY/REHAB UNIT Instructions: Foot Sprain (DC) Additional Instructions: follow up with top and seat cover fitter 1 week Referrals: Alejandro Chi MD [Staff Provider] - Zac Saunders DPM [Staff Provider] -
== END 2018-09-06 16:47 | DRG 505 ==
LOC: H.ER 11:06 → H.ERHOLD 14:00 → H.MEDSURG1 18:35
PROVIDERS: ADMIT Internal Medicine Pulmonary Disease; ATTEND Internal Medicine Pulmonary Disease
PROC: 0QSN04Z Reposition Right Metatarsal with Internal Fixation Device, Open Approach (ICD-10-PCS; principal; 2018-08-31 07:45)
DX: S92.311A Displaced fracture of first metatarsal bone, right foot, initial encounter for closed fracture (principal); I10 Essential (primary) hypertension; E78.00 Pure hypercholesterolemia, unspecified; M06.9 Rheumatoid arthritis, unspecified; J44.9 Chronic obstructive pulmonary disease, unspecified; E78.5 Hyperlipidemia, unspecified; D64.9 Anemia, unspecified; I25.2 Old myocardial infarction; M54.9 Dorsalgia, unspecified; F41.9 Anxiety disorder, unspecified; F32.9 Major depressive disorder, single episode, unspecified; Z86.718 Personal history of other venous thrombosis and embolism; Z86.711 Personal history of pulmonary embolism; M81.0 Age-related osteoporosis without current pathological fracture; X58.XXXA Exposure to other specified factors, initial encounter; S92.321A Displaced fracture of second metatarsal bone, right foot, initial encounter for closed fracture; G89.29 Other chronic pain; Z82.49 Family history of ischemic heart disease and other diseases of the circulatory system